=== PATIENT | male | born 1965 | race African-American/Black ===

== ENCOUNTER 2016-08-26 09:10 | Inpatient (IN) | payer MEDICARE, MEDICAID ==
[~2016-08-26] VITALS: Ht 160 cm; Wt 81.6 kg
--- NOTE | 2016-08-26 07:00 | NUR ---
Received report from NICKO Mcnally. Received patient sitting up in bed. Patient is alert and verbally responsive. Able to make needs known. No complaints of pain and discomfort at this time. No acute distress. No s/s of SOB. Patient is on O2 2L nasal canula. Patient is warm to touch. Clean and dry. All needs attended too. Call light within reach. Will continue to monitor. Addendum: 08/26/16 at 2014 by GAURAV FIGUEREDO RN Time charted @ 1900: Received report from NICKO Mcnally. Received patient sitting up in bed. Patient is alert and verbally responsive. Able to make needs known. No complaints of pain and discomfort at this time. No acute distress. No s/s of SOB. Patient is on O2 2L nasal canula. Patient is warm to touch. Clean and dry. All needs attended too. Call light within reach. Will continue to monitor.
[2016-08-26 09:45] VITALS: BP 132/85
[2016-08-26] MEDS ORDERED: PRED20TA PO (10:52)
[2016-08-26] MEDS ORDERED: LEVO500T15 PO (10:52)
[2016-08-26] MEDS ORDERED: METH20CP19 PO (11:06)
[2016-08-26] MEDS ORDERED: HYDR-552 PO (11:06)
[2016-08-26] MEDS ORDERED: DIAZ5SOL2 PO (11:06)
[2016-08-26] MEDS ORDERED: LEVO100T10 PO (11:06)
[2016-08-26] MEDS ORDERED: DIVA500T2 PO (11:08)
[2016-08-26] MEDS ORDERED: DOCU-25 PO (11:08)
[2016-08-26] MEDS ORDERED: SERT50TA PO (11:15)
[2016-08-26] MEDS ORDERED: CLON0.1T PO (11:15)
[2016-08-26] MEDS ORDERED: ARIP15TA2 PO (11:16)
[2016-08-26] MEDS ORDERED: HYDROCODONE/APAP 5-325MG TABLET PO PRN (12:00)
[2016-08-26] MEDS ORDERED: DIAZEPAM 5 MG TABLET PO PRN (12:15)
[2016-08-26] MEDS: LEVOFLOXACIN 500 MG TABLET PO SCH (17:20)
[2016-08-26] MEDS: DOCUSATE SODIUM 100 MG CAPSULE PO SCH (17:20)
[2016-08-26 17:50] VITALS: BP 125/68
[2016-08-26 20:00] VITALS: BP 118/74
[2016-08-26] MEDS ORDERED: Medication Not On Formulary EA (Aripiprazole (Abilify) 15 MG) PO SCH (21:00)
[2016-08-26] MEDS ORDERED: DIAZEPAM 5 MG PO SCH (21:00)
[2016-08-26] MEDS: CLONIDINE HCL 0.1 MG TABLET PO SCH (21:00)
[2016-08-26] MEDS: ARIPIPRAZOLE 5 MG TABLET PO SCH (21:27)
--- NOTE | 2016-08-26 21:27 | NUR ---
Administered patient PM medications. Tolerated well. Clonidine held due to pulse rate of 58. Palpitation of pulse are present and strong. Patient in no acute distress at this time. On continuos O2 @ 2L via nasal cannula. Verbalizes that he feels okay. Sven RT in room to set up patient BiPAP for night time. All needs attended to promptly. Call light within reach. Will continue to monitor patient.
[2016-08-26] MEDS: DIVALPROEX 500 MG TABLET.DR PO SCH (21:28)
[2016-08-26] MEDS: SERTRALINE HCL 50 MG TABLET PO SCH (21:28)
--- NOTE | 2016-08-26 22:00 | NUR ---
Re-assessed patient. Sleeping comfortably at this time. BiPAP mask and machine connected to patient. Tolerating well. On continuous pulse ox and patient oxygen saturating at 97%. Heart rate is currently at 60. No acute distress noted. All needs attended to promptly. Call light within reach. Will continue to monitor patient.
--- NOTE | 2016-08-26 23:00 | NUR ---
Patient sleeping comfortably. Tolerating BiPAP well. O2 saturation @ 97%. Pulse rate is 58. No acute distress at this time. Breathing normally. All needs attended to promptly. Call light within reach. Will continue to monitor.
--- NOTE | 2016-08-27 03:00 | NUR ---
Patient sleeping comfortably at this time. Tolerating BiPAP well. Pulse rate is at 68 at this time. Breathing normally. All needs attended to promptly. Call light within reach. Will continue to monitor.
--- NOTE | 2016-08-27 06:00 | NUR ---
Patient still asleep in bed with BiPAP machine. Tolerating well. Sleeping comfortably. No acute distress noted. No s/s of discomfort noted. O2 saturation @ 96%. Breathing normally. NO SOB noted. Kept clean and dry. All needs attended to promptly. Call light within reach. Will continue to monitor.
[2016-08-27] MEDS: LEVOTHYROXINE SODIUM 100 MCG TABLET PO SCH (06:58)
--- NOTE | 2016-08-27 07:20 | NUR ---
Patient is awake and verbally responsive. RT removed BiPAP machine from patient. Tolerated well. Breathing normally. Synthroid medication given as ordered. Tolerated well. Patient changed and cleaned. Peripheral IV discontinued. Pressure applied to site. No s/s of bleeding. All needs attended to promptly. Call light within reach. Will continue to monitor.
[2016-08-27 07:43] LABS: BASOPHILS % (AUTO) 0.2 % (0.0-2.0); EOSINOPHILS % (AUTO) 0.1 % (0.0-7.0); HEMOGLOBIN 17.1 g/dL (12.5-16.3); LYMPHOCYTES % (AUTO) 21.5 % (20.5-51.5); MEAN CORPUSCULAR HEMOGLOBIN 31.5 uug (23.8-33.4); MEAN CORPUSCULAR HGB CONC 34 g/dL (32.5-36.3); MEAN CORPUSCULAR VOLUME 92.1 fL (73.0-96.2); MONOCYTES # (AUTO) 0.4 K/uL (2.0-10.0); MONOCYTES % (AUTO) 4.6 % (0.0-11.0); NEUTROPHILS # (AUTO) 6.7 K/uL (1.8-8.9); NEUTROPHILS % (AUTO) 73.6 % (38.5-71.5); PLATELET COUNT (AUTO) 196 K/uL (152-348); RED BLOOD CELL COUNT(AUTO) 5.42 MIL/uL (4.06-5.63); RED CELL DISTRIBUTION WIDTH 13.3 % (12.1-16.2); WHITE BLOOD COUNT (AUTO) 9.1 K/uL (3.6-10.2)
[2016-08-27 07:50] LABS: CALCIUM 9.6 mg/dL (8.5-10.1); CREATININE 1.1 mg/dL (0.6-1.3); POTASSIUM 4.3 mmol/L (3.5-5.1)
[2016-08-27] MEDS ORDERED: METHYLPHENIDATE HCL 20 MG PO SCH (09:00)
[2016-08-27] MEDS: predniSONE 20 MG TABLET PO SCH (09:45)
[2016-08-27] MEDS: DOCUSATE SODIUM 100 MG CAPSULE PO SCH ×2 (09:45→18:30)
[2016-08-27] MEDS: CLONIDINE HCL 0.1 MG TABLET PO SCH ×2 (09:46→21:03)
[2016-08-27 10:14] LABS: BAND % (MANUAL) 4 % (0-10); LYMPHOCYTES % (MANUAL) 23 % (20-40); MONOCYTES % (MANUAL) 8 % (2-10); NEUTROPHILS % (MANUAL) 65 % (42-75); PLATELET ESTIMATE ADEQUATE
[2016-08-27] MEDS: METHYLPHENIDATE HCL 5 MG TABLET PO SCH (10:29)
--- NOTE | 2016-08-27 14:44 | NUR ---
DAILY NURSING NOTE UP OOB WITH PT. NGHIA THERAPY WELL. NO C/O PAIN /DISCOMFORT AT THIS TIME OR THROUGHOUT THE DAY SO FAR. AMBULATING WITH WALKER. INCONT OF BM X2 LARGE. HÉCTOR CARE PROVIDED AND PARTIAL LINEN CHANGE DONE.
[2016-08-27 16:00] VITALS: BP 104/70
[2016-08-27] MEDS: LEVOFLOXACIN 500 MG TABLET PO SCH (18:30)
[2016-08-27] MEDS: ARIPIPRAZOLE 5 MG TABLET PO SCH (20:55)
[2016-08-27] MEDS: SERTRALINE HCL 50 MG TABLET PO SCH (20:57)
[2016-08-27] MEDS: DIVALPROEX 500 MG TABLET.DR PO SCH (20:57)
--- NOTE | 2016-08-27 22:12 | NUR ---
Due to MD order and pt's request, pt placed on BiPAP with the following settings of I-10, E-5, RR-12, PS-5, FIO2-30%. No respiratory distress noted. Protecta gel placed under BiPAP mask. Cont. pulse ox on. Alarms on and audible.
--- NOTE | 2016-08-28 03:54 | NUR ---
Patient in bed. Awake and verbally responsive. Currently on BiPAP at this time. Patient noted with coughing. Verbalizes that lungs hurt because of the cough. No acute distress noted. No SOB. Patient O2 saturation @ 95%. Called Dr. Lockwood and left message. Awaiting call back. All needs attended to promptly. Call light within reach. Will continue to monitor.
--- NOTE | 2016-08-28 04:54 | NUR ---
Patient sleeping comfortably. Tolerating BiPAP. No coughing noted at this time. No acute distress. O2 Saturation at 97%. Still awaiting call back from MD. All needs attended to promptly. Call light within reach. Will continue to monitor.
--- NOTE | 2016-08-28 06:17 | NUR ---
Pt asleep. No respiratory distress noted. No changes to BiPAP settings made. Cont. pulse ox on. Alarms on an audible.
--- NOTE | 2016-08-28 06:30 | NUR ---
Received call back from Dr. Lockwood with new orders for Robitussin and Albuterol sulfate nebulizer PRN. Endorsed to on-coming shift. Patient in no acute distress at this time. All needs attended to promptly. Call light within reach. Will continue to monitor.
[2016-08-28] MEDS: LEVOTHYROXINE SODIUM 100 MCG TABLET PO SCH (07:08)
[2016-08-28] MEDS ORDERED: GUAIFENESIN SUGAR FREE 100 MG/5 ML UDC PO PRN ×3 (07:15→10:45)
[2016-08-28 08:00] VITALS: BP 110/64
[2016-08-28] MEDS: ALBUTEROL SULFATE 2.5 MG/3 ML NEBU NEB PRN (08:34)
[2016-08-28] MEDS: DOCUSATE SODIUM 100 MG CAPSULE PO SCH ×2 (09:10→17:27)
[2016-08-28] MEDS: predniSONE 20 MG TABLET PO SCH (09:17)
[2016-08-28] MEDS: CLONIDINE HCL 0.1 MG TABLET PO SCH ×2 (09:17→21:00)
[2016-08-28] MEDS: METHYLPHENIDATE HCL 5 MG TABLET PO SCH (09:17)
[2016-08-28] MEDS: IPRATROPIUM BROMIDE 0.5 MG/2.5 ML NEBU NEB SCH ×2 (13:18→20:34)
[2016-08-28] MEDS: ALBUTEROL SULFATE 2.5 MG/ 0.5 ML NEBU NEB SCH ×2 (13:18→20:34)
[2016-08-28] MEDS ORDERED: ALBUTEROL SULFATE 2.5 MG/3 ML NEBU NEB SCH (13:30)
[2016-08-28] MEDS: LEVOFLOXACIN 500 MG TABLET PO SCH (17:27)
--- NOTE | 2016-08-28 18:35 | NUR ---
RECIEVED PT AT 0700. A/O X4. DELAYED VERBAL RESPONSES. THROUGHOUT SHIFT NO RESP DISTRESS. DR. WILKS INTO SEE PT DURING AM, INFORMED OF PT COUGH, DECREASED LUNG SOUNDS BILAT AND WHEEZES. ORDERS OBTAINED. PT NOW RECEIVING UDN TX'S PER RT, NGHIA WELL. ROBITUSSIN ADMINISTERED X1 WITH FAIR EFFECT. PT STATES SITTING UP RELIEVES COUGH BEST AND REMAINED IN CHAIR IN AFTERNOON. WELL MOTIVATED TO PARTICIPATE IN REHAB PROCESS. NOW TRANSFERRED BACK TO BED WITH 2P ASSIST. RESTING WITH NO DISTRESS. O2 SAT ON 2LNC 97% WHEN SITTING UP. O2 REMAINED ON ALL SHIFT. HAD LG SOFT BM THIS MORNING, INCONTINENT IN DIAPER. INCONTINENT OF URINE 3 TIMES AND DIAPER CHANGED WITH HÉCTOR CARE EA TIME.
[2016-08-28 20:10] VITALS: BP 116/68
[2016-08-28] MEDS: ARIPIPRAZOLE 5 MG TABLET PO SCH (21:07)
[2016-08-28] MEDS: SERTRALINE HCL 50 MG TABLET PO SCH (21:07)
[2016-08-28] MEDS: DIVALPROEX 500 MG TABLET.DR PO SCH (21:07)
[2016-08-28] MEDS: GUAIFENESIN/CODEINE 5 ML LIQUID UDC PO PRN (22:06)
--- NOTE | 2016-08-28 22:28 | NUR ---
Received patient at 1900 in bed sleeping comfortably, easily arousable, not in acute distress. On O2 at 2LPM via NC. No noted episode of coughing. Call light placed in reach. Noted wheezing and diminished breath sounds bibasally. Breathing treatment given by RT as ordered. 2227 Relayed chest x-ray result to Dr. Erazo with no new order. Patient is awake, alert and verbally responsive. Clear breath sounds on auscultation. He denies any pain or discomfort. Assisted to his needs.
--- NOTE | 2016-08-28 23:05 | NUR ---
Pt received on 2LPM nasal cannula. Called by Pt to be placed on BIPAP @ NOC per MD orders. Placed on BIPAP with ordered settings of BIPAP RR-12, IPAP/EPAP-10/5, FIO2-30%. Protecta-Gel in place. Good skin integrity noted. No skin tears noted. Placed on Continuous pulse-oximeter. Tolerating BIPAP settings well. SpO2-96%. BIPAP alarm parameters checked, on and audible. Bag/valve/mask at bedside. In-line nebulizer Tx given Q6 as ordered with Albuterol/Atrovent. Tx tolerated well, with no adverse reactions noted. Will continue to monitor Pt.
[2016-08-29] MEDS: ALBUTEROL SULFATE 2.5 MG/ 0.5 ML NEBU NEB SCH ×4 (01:30→20:02)
[2016-08-29] MEDS: IPRATROPIUM BROMIDE 0.5 MG/2.5 ML NEBU NEB SCH ×4 (01:31→20:02)
[2016-08-29 03:32] VITALS: BP 109/66
--- NOTE | 2016-08-29 07:01 | NUR ---
Pt requested to be removed from BIPAP at this time. Pt now on 2LNC and has been adm'd resp neb tx. No resp. distress noted at this time.
[2016-08-29] MEDS: LEVOTHYROXINE SODIUM 100 MCG TABLET PO SCH (07:09)
[2016-08-29 08:00] VITALS: BP 114/62
[2016-08-29] MEDS: DOCUSATE SODIUM 100 MG CAPSULE PO SCH ×2 (09:22→17:15)
[2016-08-29] MEDS: METHYLPHENIDATE HCL 5 MG TABLET PO SCH (09:22)
[2016-08-29] MEDS: CLONIDINE HCL 0.1 MG TABLET PO SCH ×2 (09:22→20:49)
[2016-08-29] MEDS: predniSONE 20 MG TABLET PO SCH (09:23)
[2016-08-29] MEDS: LEVOFLOXACIN 500 MG TABLET PO SCH (17:16)
[2016-08-29] MEDS: SERTRALINE HCL 50 MG TABLET PO SCH (20:38)
[2016-08-29] MEDS: DIVALPROEX 500 MG TABLET.DR PO SCH (20:39)
[2016-08-29] MEDS: ARIPIPRAZOLE 5 MG TABLET PO SCH (20:39)
[2016-08-29] MEDS: GUAIFENESIN/CODEINE 5 ML LIQUID UDC PO PRN (20:47)
--- NOTE | 2016-08-29 21:00 | NUR ---
PATIENT RECEIVED ON 3LPM O2 VIA NASAL CANNULA. PLACED PATIENT ON BIPAP WITH 30% fIO2 ON ORDERED SETTINGS 10/5 12RR. NO COMPLICATIONS NOTED. PROTECTA-GEL IN PLACE FOR SKIN INTEGRITY. ALARMS ARE ON AND AUDIBLE. INLINE TREATMENTS ADMINISTERED AND TOLERATED WELL. NO ADVERSE REACTIONS NOTED AT THIS TIME. AMBU BAG AT BEDSIDE. WILL CONTINUE TO MONITOR THROUGHOUT SHIFT.
[2016-08-30] MEDS: IPRATROPIUM BROMIDE 0.5 MG/2.5 ML NEBU NEB SCH ×4 (01:27→20:02)
[2016-08-30] MEDS: ALBUTEROL SULFATE 2.5 MG/ 0.5 ML NEBU NEB SCH ×4 (01:27→20:02)
--- NOTE | 2016-08-30 07:00 | NUR ---
Patient alert and oriented and verbally able to let needs known. Had no episodes of pain or discomfort through out the night, no episodes of SOB or distress. Had Bipap machine all night. Call light within reach all needs attended to
[2016-08-30] MEDS: LEVOTHYROXINE SODIUM 100 MCG TABLET PO SCH (07:08)
[2016-08-30 08:30] VITALS: BP 110/72
[2016-08-30] MEDS: METHYLPHENIDATE HCL 5 MG TABLET PO SCH (09:12)
[2016-08-30] MEDS: predniSONE 20 MG TABLET PO SCH (09:12)
[2016-08-30] MEDS: DOCUSATE SODIUM 100 MG CAPSULE PO SCH ×2 (09:12→17:50)
[2016-08-30] MEDS: CLONIDINE HCL 0.1 MG TABLET PO SCH ×2 (09:13→20:33)
[2016-08-30] MEDS: LEVOFLOXACIN 500 MG TABLET PO SCH (17:50)
--- NOTE | 2016-08-30 18:38 | NUR ---
received pt at 0700. a/o x4 w/ delayed but appropriate verbal responses, passive. resp even and unlabored with o2 sat wnl throughout shift. denies sob. receiving udn tx's per RT. has spent most of day up in chair and participated in therapies, well motivated to participate in rehab process. O2 2lnc on at all times including during therapy. O2 sat drops to 90% when O2 off. no distress or complaints throughout shift.
--- NOTE | 2016-08-30 19:00 | NUR ---
Received report from NICKO Blevins. Received patient sitting up in the chair. Patient is alert and verbally responsive. Able to make needs known. No c/o pain and discomfort at this time. No acute distress. No SOB. Patient on O2 2L via NC. Tolerating well. Kept clean and dry. All needs attended to promptly. Call light within reach. Will continue to monitor.
[2016-08-30] MEDS: ARIPIPRAZOLE 5 MG TABLET PO SCH (20:33)
--- NOTE | 2016-08-30 20:33 | NUR ---
PM medications given. Tolerated well. Transferred back to bed with 2 person assist. Tolerated well. No acute distress. No c/o pain and discomfort. Kept clean and dry. All needs attended to promptly. Call light within reach. Will continue to monitor.
[2016-08-30] MEDS: DIVALPROEX 500 MG TABLET.DR PO SCH (20:34)
[2016-08-30] MEDS: SERTRALINE HCL 50 MG TABLET PO SCH (20:41)
--- NOTE | 2016-08-30 21:20 | NUR ---
Pt placed on BIPAP at this time for sleep per pt request. Settings are IPAP 10, EPAP 5, resp. rate. 12, FIO2-30%. No resp. distress noted at this time. Pt to be monitored throughout the shift.
[2016-08-31] MEDS: ALBUTEROL SULFATE 2.5 MG/ 0.5 ML NEBU NEB SCH ×4 (00:38→18:58)
[2016-08-31] MEDS: IPRATROPIUM BROMIDE 0.5 MG/2.5 ML NEBU NEB SCH ×4 (00:38→18:58)
--- NOTE | 2016-08-31 02:02 | NUR ---
Patient sleeping comfortably in bed. Tolerating BiPAP well. No acute distress. NO SOB noted. Skin is warm and dry to touch. All needs attended to promptly. Call light within reach. Will continue to monitor.
--- NOTE | 2016-08-31 06:00 | NUR ---
Patient slept comfortably through out the night. Remains on BiPAP. Tolerating well. No acute distress. All needs attended to promptly. Call light within reach. Will continue to monitor.
--- NOTE | 2016-08-31 06:04 | NUR ---
Patient remains on BIPAP at this time asleep. No resp. distress noted throughout the shift. Pt to be removed off BIPAP later this morning by day shift, Vision alarm parameters have been checked and remain audible. BVM is at bedside.
[2016-08-31] MEDS: LEVOTHYROXINE SODIUM 100 MCG TABLET PO SCH (07:15)
--- NOTE | 2016-08-31 08:00 | NUR ---
Pt alert and oriented x 3 with flat affect. o2 sat 95% on 2 liters n/c. Noted dry scab on lower extremities. Pt is in no acute distress. Discussed plan of care with patient re fall precaution and proper pain management. Pt agreeable with plan of care. Lung sound clear.
[2016-08-31 08:02] VITALS: BP 97/60
[2016-08-31] MEDS: METHYLPHENIDATE HCL 5 MG TABLET PO SCH (08:55)
[2016-08-31] MEDS: CLONIDINE HCL 0.1 MG TABLET PO SCH ×2 (08:56→21:00)
[2016-08-31] MEDS: DOCUSATE SODIUM 100 MG CAPSULE PO SCH ×2 (08:56→17:20)
[2016-08-31] MEDS: predniSONE 20 MG TABLET PO SCH (08:56)
[2016-08-31 14:15] VITALS: BP 101/63
[2016-08-31] MEDS: MAGNESIUM HYDROXIDE 30 ML LIQUID UDC PO PRN (17:34)
--- NOTE | 2016-08-31 18:00 | NUR ---
Pt is in no acute distress. Pt got started on MOM for constipation awaiting result. Call light is within reach. Plan of care effective.
--- NOTE | 2016-08-31 20:55 | NUR ---
Patient placed on BIPAP Vision at this time for sleep per patient's request. Settings are IPAP 10, EPAP 5, respiratory rate 12 BPM and FIO2-30%. No respiratory distress noted at this time. Patient to be monitored throughout the shift. Vision alarm parameters have been checked and are audible. Resuscitation bag is at bedside.
[2016-08-31] MEDS: ARIPIPRAZOLE 5 MG TABLET PO SCH (21:05)
[2016-08-31] MEDS: SERTRALINE HCL 50 MG TABLET PO SCH (21:07)
[2016-08-31] MEDS: DIVALPROEX 500 MG TABLET.DR PO SCH (21:07)
[2016-08-31 22:37] VITALS: BP 102/64
--- NOTE | 2016-09-01 | NUR ---
Pt sleeping, has bipap mask on. denied pain, refused help with repositioning stating he can do it his self. denied needing help to the bathroom, no respiratory distress noted, call light within reach, will continue to monitor.
[2016-09-01] MEDS: IPRATROPIUM BROMIDE 0.5 MG/2.5 ML NEBU NEB SCH ×4 (00:51→19:01)
[2016-09-01] MEDS: ALBUTEROL SULFATE 2.5 MG/ 0.5 ML NEBU NEB SCH ×4 (00:52→19:01)
--- NOTE | 2016-09-01 04:28 | NUR ---
pt agreed to be turned and reposition, pt turned to side and back. pt agreed to changing brief. pt cont with having bipap on, no distress noted. call light within reach.
--- NOTE | 2016-09-01 05:03 | NUR ---
Patient remains on BIPAP at this time and is currently asleep. No respiratory distress noted throughout the shift. Patient to be removed off BIPAP later this morning by day shift. BIPAP Vision alarm parameters have been checked and remain audible. Resuscitation bag is at bedside.
[2016-09-01] MEDS: LEVOTHYROXINE SODIUM 100 MCG TABLET PO SCH (06:03)
--- NOTE | 2016-09-01 07:31 | NUR ---
Sleeping with bipap on, on moderate high back rest
[2016-09-01 08:00] VITALS: BP 121/73
[2016-09-01] MEDS: CLONIDINE HCL 0.1 MG TABLET PO SCH ×2 (09:16→20:51)
[2016-09-01] MEDS: DOCUSATE SODIUM 100 MG CAPSULE PO SCH ×2 (09:16→17:26)
[2016-09-01] MEDS: METHYLPHENIDATE HCL 5 MG TABLET PO SCH (09:17)
[2016-09-01] MEDS: GUAIFENESIN/CODEINE 5 ML LIQUID UDC PO PRN (09:21)
[2016-09-01] MEDS: MAGNESIUM HYDROXIDE 30 ML LIQUID UDC PO PRN (09:21)
--- NOTE | 2016-09-01 14:00 | NUR ---
Assisted to the bathroom, with BM to formed stool in moderate amount after MOM.
[2016-09-01 16:39] VITALS: BP 100/61
--- NOTE | 2016-09-01 18:53 | NUR ---
Still prefers to sit on the wheelchair at this time. Endorsed for further care
--- NOTE | 2016-09-01 19:30 | NUR ---
RECEIVED PATIENT UP IN CHAIR WITHOUT C/O SOB OR WEAKNESS ON ROOM AIR.FEELING STRONGER TODAY. DOING BETTER WITH PT/OT ALSO FEELING BETTER.NO C/O PAIN AT PRESENT. WILL BE GOING ON BIPAP SOON FOR THE NIGHT. COMFORTABLE AT PRESENT. SAFETY MAINTAINED WITH CALL LIGHT WITHIN REACH AAT AND ROUNDING DONE Q 1 HR AND PRN
[2016-09-01 20:15] VITALS: BP 102/54
[2016-09-01] MEDS: SERTRALINE HCL 50 MG TABLET PO SCH (20:50)
[2016-09-01] MEDS: DIVALPROEX 500 MG TABLET.DR PO SCH (20:51)
[2016-09-01] MEDS: ARIPIPRAZOLE 5 MG TABLET PO SCH (20:51)
--- NOTE | 2016-09-01 22:00 | NUR ---
PLACED PT ON BIPAP IPAP 10 EPAP 5 FIO2 30% . AWAKE AND ALERT. NO DISTRESS NOTED AT THIS TIME. WILL CONTINUE TO MONITOR.
--- NOTE | 2016-09-01 22:00 | NUR ---
PATIENT BACK IN BED WITH PM CARE DONE. INCONTINENCE CARE DONE TO KEEP CLEAN AND DRY. PLACED ON BIPAP BY RT. NO C/O RESPIRATORY DISTRESS, COUGHING NONPRODUCTIVELY. DIMINISHED BREATH SOUNDS THROUGHOUT.
[2016-09-02] MEDS: ALBUTEROL SULFATE 2.5 MG/ 0.5 ML NEBU NEB SCH ×4 (01:11→20:13)
[2016-09-02] MEDS: IPRATROPIUM BROMIDE 0.5 MG/2.5 ML NEBU NEB SCH ×4 (01:11→20:13)
[2016-09-02] MEDS: LEVOTHYROXINE SODIUM 100 MCG TABLET PO SCH (06:33)
--- NOTE | 2016-09-02 07:30 | NUR ---
Discussed plan of care and implement interventions re: aspiration precautions, fall precaution, Bowel and bladder management, pain management and encouraged independence as much as possible. Pt agreeable with plan of care. Call light is within reach. Pt denies any c/o pain.
[2016-09-02 07:32] LABS: BASOPHILS # (AUTO) 0.1 K/uL (0.0-8.0); BASOPHILS % (AUTO) 0.8 % (0.0-2.0); EOSINOPHILS # (AUTO) 0.1 K/uL (0.0-0.7); EOSINOPHILS % (AUTO) 1.2 % (0.0-7.0); HEMATOCRIT 48.3 % (36.7-47.1); HEMOGLOBIN 16.3 g/dL (12.5-16.3); LYMPHOCYTES # (AUTO) 2.3 K/uL (20.0-40.0); LYMPHOCYTES % (AUTO) 29.3 % (20.5-51.5); MEAN CORPUSCULAR HGB CONC 34 g/dL (32.5-36.3); MONOCYTES # (AUTO) 0.3 K/uL (2.0-10.0); NEUTROPHILS % (AUTO) 64.7 % (38.5-71.5); RED BLOOD CELL COUNT(AUTO) 5.25 MIL/uL (4.06-5.63); RED CELL DISTRIBUTION WIDTH 13.2 % (12.1-16.2); WHITE BLOOD COUNT (AUTO) 7.8 K/uL (3.6-10.2)
[2016-09-02 07:43] LABS: CALCIUM 8.7 mg/dL (8.5-10.1); CREATININE 1.1 mg/dL (0.6-1.3); PLATELET COUNT (AUTO) 116 K/uL (152-348); POTASSIUM 4.6 mmol/L (3.5-5.1)
[2016-09-02] MEDS: DOCUSATE SODIUM 100 MG CAPSULE PO SCH ×2 (08:00→17:31)
[2016-09-02] MEDS: CLONIDINE HCL 0.1 MG TABLET PO SCH ×2 (08:00→20:37)
[2016-09-02] MEDS: METHYLPHENIDATE HCL 5 MG TABLET PO SCH (08:00)
--- NOTE | 2016-09-02 08:30 | NUR ---
Notified pk of ST recommendations for video swallow eval secondary to pt has coughing when eating. New order received and carried out.
[2016-09-02] MEDS: GUAIFENESIN/CODEINE 5 ML LIQUID UDC PO PRN (09:34)
--- NOTE | 2016-09-02 14:00 | NUR ---
Pt assisted to the bathroom. Pt. preferred to use bathroom rather than urinal. Pt. instructed to use incentive spirometer. Addendum: 09/02/16 at 1932 by SHERIE SALOMON RN Pt able to return demonstrate proper use of incentive spirometer and encourage to use IS q 1 hr WA
--- NOTE | 2016-09-02 18:30 | NUR ---
Plan of care effective. no fall noted this shift, pt denies any c/o pain, and pt has been using IS as instructed. Call light is within reach.
--- NOTE | 2016-09-02 19:30 | NUR ---
RECEIVED PATIENT OOB IN CHAIR IN NAD ON ROOM AIR. NO C/O SOB OR PAIN AT PRESENT.WILL BE USING BIPAP AGAIN TONIGHT ABOUT 2200. DIMINISHED BREATH SOUNDS THROUGHOUT. ABLE TO TAKE PILLS WHOLE WITHOUT COUGHING OR SIGNS OF CHOKING OR ASPIRATION. ASSISTED BACK TO BED WITH CONTACT GUARD ASSIST. DIAPER CHANGED. KEPT CLEAN AND DRY. HÉCTOR AREA IS REDDENED. Z GUARD CREAM ORDERED FROM PHARMACY. WILL BE CHECKING DIAPER Q 1 TO 2 HRS TO MAKE SURE PATIENT IS CLEAN AND DRY.CALL LIGHT IN REACH AND BED ALARM ON AAT
[2016-09-02 20:00] VITALS: BP 100/65
[2016-09-02] MEDS: DIVALPROEX 500 MG TABLET.DR PO SCH (20:35)
[2016-09-02] MEDS: SERTRALINE HCL 50 MG TABLET PO SCH (20:36)
[2016-09-02] MEDS: ARIPIPRAZOLE 5 MG TABLET PO SCH (20:36)
--- NOTE | 2016-09-02 22:00 | NUR ---
PLACED ON BIPAP FOR THE NIGHT. ADEQUATE VOLUMES OBTAINED. RESTING SOUNDLY WITHOUT RESPIRATORY DISTRESS NOTED
[2016-09-03] MEDS: IPRATROPIUM BROMIDE 0.5 MG/2.5 ML NEBU NEB SCH ×4 (01:45→19:09)
[2016-09-03] MEDS: ALBUTEROL SULFATE 2.5 MG/ 0.5 ML NEBU NEB SCH ×4 (01:45→19:09)
[2016-09-03] MEDS: LEVOTHYROXINE SODIUM 100 MCG TABLET PO SCH (06:28)
--- NOTE | 2016-09-03 06:30 | NUR ---
TOLERATED BEING ON BIPAP 305 FIO2 OVER NIGHT FROM 2200 TO 0600 WITHOUT SIGNS OF ASPIRATION OR RESPIRATORY DISTRESS.WILL BE HAVING VIDEO SWALLOW TODAY TO ASSESS FOR ASPIRATION EPISODES ABOUT 1600. SLEPT WELL. NO C/O PAIN. ENCOURAGED DEEP BREATHING. WITH IS CALL LIGHT WITHIN REACH. BED ALARM ON FREE FROM INJURY THIS SHIFT
[2016-09-03 06:33] LABS: BASOPHILS % (AUTO) 0.2 % (0.0-2.0); EOSINOPHILS # (AUTO) 0.1 K/uL (0.0-0.7); EOSINOPHILS % (AUTO) 0.8 % (0.0-7.0); HEMATOCRIT 47.6 % (36.7-47.1); HEMOGLOBIN 16.4 g/dL (12.5-16.3); LYMPHOCYTES # (AUTO) 1.9 K/uL (20.0-40.0); LYMPHOCYTES % (AUTO) 21.1 % (20.5-51.5); MEAN CORPUSCULAR HEMOGLOBIN 31.5 uug (23.8-33.4); MEAN CORPUSCULAR HGB CONC 34 g/dL (32.5-36.3); MEAN CORPUSCULAR VOLUME 91.6 fL (73.0-96.2); MONOCYTES # (AUTO) 0.4 K/uL (2.0-10.0); MONOCYTES % (AUTO) 4.9 % (0.0-11.0); NEUTROPHILS # (AUTO) 6.7 K/uL (1.8-8.9); PLATELET COUNT (AUTO) 131 K/uL (152-348); RED CELL DISTRIBUTION WIDTH 13.1 % (12.1-16.2); WHITE BLOOD COUNT (AUTO) 9.1 K/uL (3.6-10.2)
--- NOTE | 2016-09-03 07:15 | NUR ---
Patient received from cage shift manager, sleeping comfortably in bed, no signs of acute distress noted. Respirations even and unlabored. Environmental check for safety done, safety precautions maintained. Bed in low position, bed alarm on, call light within reach.
[2016-09-03 07:28] LABS: THYROID STIMULATING HORMONE 2.315 mIU/mL (0.358-3.740)
[2016-09-03 08:15] VITALS: BP 108/67
[2016-09-03] MEDS: CLONIDINE HCL 0.1 MG TABLET PO SCH ×2 (08:34→21:00)
[2016-09-03] MEDS: METHYLPHENIDATE HCL 5 MG TABLET PO SCH (08:34)
[2016-09-03] MEDS: DOCUSATE SODIUM 100 MG CAPSULE PO SCH ×2 (08:34→17:08)
[2016-09-03 08:45] LABS: ALBUMIN 3.2 g/dL (3.4-5.0); BILIRUBIN,TOTAL 0.7 mg/dL (0.2-1.0); CALCIUM 8.7 mg/dL (8.5-10.1); MAGNESIUM 2.1 mg/dL (1.8-2.4); PHOSPHOROUS 3.8 mg/dL (2.5-4.9); POTASSIUM 4.2 mmol/L (3.5-5.1); TOTAL PROTEIN, SERUM 6.4 g/dL (6.4-8.2)
[2016-09-03] MEDS ORDERED: DEXTROSE 50% 50 ML DISP.SYRIN IV PRN (10:00)
[2016-09-03] MEDS: BLOOD SUGAR DIAGNOSTIC 1 EACH STRIP VI SCH ×3 (11:38→21:39)
[2016-09-03] MEDS: GUAIFENESIN/CODEINE 5 ML LIQUID UDC PO PRN ×2 (11:38→21:26)
[2016-09-03] MEDS: INSULIN REGULAR, HUMAN 300 UNIT/3 ML VIAL SQ PRN ×3 (11:43→21:37)
[2016-09-03] MEDS ORDERED: BARIUM SULFATE 148 GM SUSP.RECON PO ONE (11:51)
[2016-09-03] MEDS ORDERED: BARIUM SULFATE 240 ML ORAL.SUSP PO ONE (11:51)
--- NOTE | 2016-09-03 15:00 | NUR ---
IDT MEETING 09/03/16
[2016-09-03 15:57] VITALS: BP 121/67
--- NOTE | 2016-09-03 19:30 | NUR ---
Received report from NICKO Morales. Patient received sitting up in his chair. Alert and verbally responsive. Able to make needs known. No c/o pain and discomfort at this time. No acute distress. Patient on room air. Kept clean and dry. All needs attended to promptly. Call light within reach. Will continue to monitor.
[2016-09-03] MEDS ORDERED: IBUPROFEN 400 MG TABLET PO PRN (21:15)
[2016-09-03] MEDS: SERTRALINE HCL 50 MG TABLET PO SCH (21:25)
[2016-09-03] MEDS: DIVALPROEX 500 MG TABLET.DR PO SCH (21:25)
[2016-09-03] MEDS: ARIPIPRAZOLE 5 MG TABLET PO SCH (21:26)
--- NOTE | 2016-09-03 21:26 | NUR ---
Patient still noted with Non-productive cough. V/S are stable O2 sat at 95%. Lung sounds are clear. No c/o pain. Robitussin AC given as needed. Patient tolerated well. Patient also transferred from chair to bed with 1 person assist. Patient tolerated transfer well. PM care given. All needs attended to promptly. Call light within reach. Will continue to monitor
--- NOTE | 2016-09-03 22:00 | NUR ---
Patient put on BiPAP by RT. Patient tolerating BiPAP well. All needs attended too. Call light within reach. Will continue to monitor.
--- NOTE | 2016-09-03 22:00 | NUR ---
Patient remains on BIPAP at this time asleep. No resp. distress noted throughout the shift. Pt to be removed off BIPAP later this morning by day shift, Vision alarm parameters have been checked and remain audible. Resusc. bag is at bedside.
[2016-09-04] MEDS: ALBUTEROL SULFATE 2.5 MG/ 0.5 ML NEBU NEB SCH ×4 (00:53→19:16)
[2016-09-04] MEDS: IPRATROPIUM BROMIDE 0.5 MG/2.5 ML NEBU NEB SCH ×4 (00:53→19:16)
--- NOTE | 2016-09-04 05:30 | NUR ---
Patient still asleep at this time. Tolerating BiPAP well. Breathing normally. No SOB noted. No acute distress. No coughing noted at this time. All needs attended to promptly. Call light within reach. Will continue to monitor patient.
[2016-09-04] MEDS: LEVOTHYROXINE SODIUM 100 MCG TABLET PO SCH (06:24)
[2016-09-04] MEDS: BLOOD SUGAR DIAGNOSTIC 1 EACH STRIP VI SCH ×4 (06:54→21:53)
--- NOTE | 2016-09-04 08:00 | NUR ---
RECEIVED PT THIS AM IN NAD; VS WNL; PT ON ROOM AIR SPO2 95%. PT DENIES CONCERNS AT THIS TIME.
[2016-09-04] MEDS: METHYLPHENIDATE HCL 5 MG TABLET PO SCH (08:01)
[2016-09-04] MEDS: DOCUSATE SODIUM 100 MG CAPSULE PO SCH ×2 (08:01→17:13)
[2016-09-04] MEDS: CLONIDINE HCL 0.1 MG TABLET PO SCH ×2 (08:02→21:00)
[2016-09-04] MEDS: INSULIN REGULAR, HUMAN 300 UNIT/3 ML VIAL SQ PRN ×2 (08:13→21:53)
[2016-09-04 08:34] VITALS: BP 131/84
[2016-09-04] MEDS: GUAIFENESIN/CODEINE 5 ML LIQUID UDC PO PRN ×3 (09:07→21:42)
--- NOTE | 2016-09-04 13:39 | NUR ---
DR FLORES AT BEDSIDE FOR PSYCHIATRIC CONSULT
--- NOTE | 2016-09-04 19:30 | NUR ---
Received report from NICKO Cr. Received patient sitting up in chair. Alert and verbally responsive. Able to make needs known. No c/o pain and discomfort at this time. No acute distress. No SOB noted. All needs attended to promptly. Call light within reach. Will continue to monitor.
[2016-09-04] MEDS ORDERED: SERTRALINE HCL 50 MG TABLET PO SCH (21:00)
[2016-09-04] MEDS: ARIPIPRAZOLE 5 MG TABLET PO SCH (21:39)
[2016-09-04] MEDS: SERTRALINE HCL 100 MG TABLET PO SCH (21:40)
[2016-09-04] MEDS: DIVALPROEX 500 MG TABLET.DR PO SCH (21:40)
--- NOTE | 2016-09-04 23:50 | NUR ---
Patient placed on BiPAP at this time. Tolerating well. No acute distress. All needs attended to promptly. Call light within reach. Will continue to monitor.
[2016-09-05] MEDS: IPRATROPIUM BROMIDE 0.5 MG/2.5 ML NEBU NEB SCH ×4 (00:38→19:59)
[2016-09-05] MEDS: ALBUTEROL SULFATE 2.5 MG/ 0.5 ML NEBU NEB SCH ×4 (00:38→19:59)
--- NOTE | 2016-09-05 00:43 | NUR ---
PLACED PATIENT ON BIPAP AT 2350. PATIENT REMAINS ON BIPAP AT THIS TIME. HHN TREATMENT ADMINISTERED PER MD ORDERS AND TOLERATED WELL WITH NO ADVERSE REACTIONS NOTED. ALARM PARAMETER ARE ON AND AUDIBLE. AMBU BAG IS AT BEDSIDE. PATIENT IS ASLEEP AND NO SOB NOTED AT THIS TIME.
--- NOTE | 2016-09-05 01:00 | NUR ---
Patient remains on BiPAP. Tolerating well. Sleeping comfortably. All needs attended to promptly. Call light within reach. Will continue to monitor.
--- NOTE | 2016-09-05 06:15 | NUR ---
Patient still asleep at this time. Remains on BiPAP. No acute distress. No SOB. All needs attended to promptly. Call light within reach. Will continue to monitor.
[2016-09-05] MEDS: LEVOTHYROXINE SODIUM 100 MCG TABLET PO SCH (06:38)
[2016-09-05] MEDS: BLOOD SUGAR DIAGNOSTIC 1 EACH STRIP VI SCH ×4 (06:40→20:47)
--- NOTE | 2016-09-05 07:15 | NUR ---
Patient received from night nurse, no signs of acute distress noted. Patient resting comfortably in bed, no signs of pain noted. Respirations even and unlabored. VS WNL. Safety precautions maintained, bed in low position.
[2016-09-05 07:52] VITALS: BP 97/57
[2016-09-05] MEDS: CLONIDINE HCL 0.1 MG TABLET PO SCH (09:00)
[2016-09-05] MEDS: DOCUSATE SODIUM 100 MG CAPSULE PO SCH ×2 (09:18→17:46)
[2016-09-05] MEDS: METHYLPHENIDATE HCL 5 MG TABLET PO SCH (09:19)
[2016-09-05] MEDS: GUAIFENESIN/CODEINE 5 ML LIQUID UDC PO PRN ×2 (11:14→22:06)
[2016-09-05] MEDS: predniSONE 10 MG TABLET PO SCH (11:33)
[2016-09-05] MEDS: INSULIN REGULAR, HUMAN 300 UNIT/3 ML VIAL SQ PRN ×3 (12:41→21:05)
[2016-09-05] MEDS: LEVOFLOXACIN 500 MG TABLET PO SCH (13:05)
--- NOTE | 2016-09-05 19:50 | NUR ---
RECEIVED PT'S SITTING @ WHEELCHAIR AND STATED THAT "I DON'T WANT TO GO BACK TO BED YET AND I WILL GO AROUND IN THE HALLWAY",DRY COUGH SOMETIMES;NO SOB ,BILATERAL LUNG'S CLEAR.PT DENIED OF PAIN OR ANY DISCOMFORT.CONTINUED MONITORING TO PT.
[2016-09-05] MEDS: ALBUTEROL SULFATE 2.5 MG/3 ML NEBU NEB PRN (19:59)
[2016-09-05 20:00] VITALS: BP 125/79
[2016-09-05] MEDS: SERTRALINE HCL 100 MG TABLET PO SCH (20:50)
[2016-09-05] MEDS: DIVALPROEX 500 MG TABLET.DR PO SCH (20:50)
[2016-09-05] MEDS: ARIPIPRAZOLE 5 MG TABLET PO SCH (20:51)
--- NOTE | 2016-09-05 21:30 | NUR ---
ASSISTED PT TO GO BACK TO BED;SKIN CARE PER PROTOCOL,PT DENIED OF PAIN OR ANY DISCOMFORT,COOPERATIVE W/ASSISTANCE.CHANGED GOWN AND ALL NEEDS WERE MET AT THIS TIME.KEPT COMFORT.CALL-LIGHT WITHIN REACH.BED ALARM'S ON.
--- NOTE | 2016-09-05 22:31 | NUR ---
PLACED PT ON BIPAP SETTINGS ST 10/5 RATE 12, FIO2 30%, VENT CHECKED, ALARMS ON AND AUDIBLE, PROTECTA GEL IN PLACED, NO S/S DISTRESS NOTED, PT ON SEMI BAUER'S POSITION. WILL CONTINUE TO MONITOR.
[2016-09-06] MEDS: IPRATROPIUM BROMIDE 0.5 MG/2.5 ML NEBU NEB SCH ×4 (00:55→18:40)
[2016-09-06] MEDS: ALBUTEROL SULFATE 2.5 MG/ 0.5 ML NEBU NEB SCH ×4 (00:55→18:40)
[2016-09-06] MEDS: LEVOTHYROXINE SODIUM 100 MCG TABLET PO SCH (06:30)
[2016-09-06] MEDS: BLOOD SUGAR DIAGNOSTIC 1 EACH STRIP VI SCH ×4 (06:46→21:42)
--- NOTE | 2016-09-06 06:50 | NUR ---
PT SLEPT WELL AT NIGHT.ASSISTED FOR AM CARE ON BED THIS MORNING;PT'S COOPERATIVE W/ASSISTANCE;DENIED OF PAIN OR ANY DISCOMFORT.NO DISTRESS NOTED IN THE SHIFT.
[2016-09-06 08:00] VITALS: BP 117/63
--- NOTE | 2016-09-06 08:00 | NUR ---
Awake, alert, oriented x 4. Repositioned in bed comfortably.
[2016-09-06] MEDS: DOCUSATE SODIUM 100 MG CAPSULE PO SCH ×2 (08:39→17:34)
[2016-09-06] MEDS: METHYLPHENIDATE HCL 5 MG TABLET PO SCH (08:40)
[2016-09-06] MEDS: predniSONE 10 MG TABLET PO SCH (08:40)
[2016-09-06] MEDS: INSULIN REGULAR, HUMAN 300 UNIT/3 ML VIAL SQ PRN ×3 (08:42→21:37)
[2016-09-06] MEDS: GUAIFENESIN/CODEINE 5 ML LIQUID UDC PO PRN ×3 (09:42→21:22)
[2016-09-06] MEDS: MAGNESIUM HYDROXIDE 30 ML LIQUID UDC PO PRN (09:42)
[2016-09-06] MEDS ORDERED: DOCUSATE SODIUM 100 MG CAPSULE PO SCH (11:45)
[2016-09-06] MEDS ORDERED: BISACODYL 10 MG SUPP.RECT RC PRN (11:45)
[2016-09-06] MEDS ORDERED: FLEET ENEMA 133 ML BOTTLE RC ONE (11:45)
[2016-09-06] MEDS: LEVOFLOXACIN 500 MG TABLET PO SCH (12:32)
--- NOTE | 2016-09-06 13:49 | NUR ---
No BM x 5 days. MOM po given, still no BM. Fleet's enema given as ordered.
--- NOTE | 2016-09-06 18:18 | NUR ---
With moderate amount of soft stool after fleets enema. Incontinence care given. Repositioned comfortably, kept dry.
--- NOTE | 2016-09-06 19:30 | NUR ---
RECEIVED PATIENT RESTING QUIETLY IN BED IN NAD. NO OVERT SIGNS OF RESPIRATORY DISTRESS ON ROOM AIR. WILL BE GOING ON BIPAP TONIGHT ABOUT 2200.SATS ON ROOM AIR ARE FROM 93-96%. LUNGS ARE DIMINISHED THROUGHOUT. NONPRODUCTIVE FREQUENT COUGH. REQUESTING ROBITUSSIN PRIOR TO SLEEP.INSTRUCTED TO CALL RN FOR ANY NEEDS KNOWN. PATIENT VERBALLY AGREES. CALL LIGHT WITHIN REACH AND BED ALARM ON AAT.NO C/O PAIN AT THIS TIME.
[2016-09-06 20:00] VITALS: BP 107/66
[2016-09-06] MEDS: DIVALPROEX 500 MG TABLET.DR PO SCH (21:16)
[2016-09-06] MEDS: SERTRALINE HCL 100 MG TABLET PO SCH (21:17)
[2016-09-06] MEDS: HYDROCORTISONE 2.5% CREAM 20 GM TUBE TOP PRN (21:17)
[2016-09-06] MEDS: ARIPIPRAZOLE 5 MG TABLET PO SCH (21:17)
[2016-09-06] MEDS: Z GUARD REMEDY PASTE 57 GM TUBE TOP PRN (21:18)
--- NOTE | 2016-09-06 21:30 | NUR ---
ACCUCHECKS DONE AC/HS. BLOOD SUGAR WAS 117. NO INSULIN COVERAGE NEEDED. REFUSES PM SNACK.INCONTINENT OF URINE IN DIAPER. PM CARE DONE WITH Z GUARD APPLIED TO HÉCTOR AREA.
--- NOTE | 2016-09-06 21:50 | NUR ---
Pt placed on BIPAP per md order with settings of IPAP 10 EPAP 5, respiratory rate of 12, FiO2 30%. Protecta gel placed to protect skin from mask. No signs of respiratory distress noted. Pt is awake and alert, states that the mask is comfortable at this time. Pt is tolerating BIPAP and mask well. SpO2 96%. RN notified and aware that pt is on BIPAP now. Alarms are functioning and audible. Will continue to monitor pt throughout shift.
--- NOTE | 2016-09-06 21:50 | NUR ---
PLACED ON BIPAP WITH SETTINGS OF 30% FIO2, 10/5, WITH RR OF 12/MIN. PLACED ON CONTINUOUS PULSE OX.FOR THE NIGHT. SATS ARE RUNNING 95-97% ON BIPAP. PATIENT STATES MASK IS COMFORTABLE AT THIS TIME. OBSERVED CLOSELY FOR SIGNS OF POTENTIAL ASPIRATION THROUGHOUT THE NIGHT.NO SIGNS OF RESPIRATORY DISTRESS AT THIS TIME.CALL LIGHT WITHIN REACH AAT. PATIENT IS IN SEMI FOWLERS POSITION FOR SLEEP. NO C/O AT THIS TIME
[2016-09-07] MEDS: IPRATROPIUM BROMIDE 0.5 MG/2.5 ML NEBU NEB SCH ×4 (01:40→19:23)
[2016-09-07] MEDS: ALBUTEROL SULFATE 2.5 MG/ 0.5 ML NEBU NEB SCH ×4 (01:40→19:23)
--- NOTE | 2016-09-07 06:00 | NUR ---
PT SLEPT WELL TONIGHT WITH BIPAP ON UNTIL 0600 THIS MORNING. SATS MAINTAINED IN THE MID 90'S. NO PERIODS OF APNEA NOTED. CONTINUES TO BE INCONTINENT OF URINE IN DIAPERS. SCROTUM AND PENIS ARE REDDENED. Z GUARD APPLIED FREQUENTLY.LEFT PATIENT WITH CALL LIGHT IN REACH AND BED ALARM ON. MORNING ACCUCHECK WAS 117
[2016-09-07] MEDS: LEVOTHYROXINE SODIUM 100 MCG TABLET PO SCH (06:05)
[2016-09-07] MEDS: BLOOD SUGAR DIAGNOSTIC 1 EACH STRIP VI SCH ×4 (06:34→20:37)
[2016-09-07] MEDS: Z GUARD REMEDY PASTE 57 GM TUBE TOP PRN (06:35)
[2016-09-07 07:12] LABS: BASOPHILS % (AUTO) 0.4 % (0.0-2.0); EOSINOPHILS # (AUTO) 0.1 K/uL (0.0-0.7); EOSINOPHILS % (AUTO) 0.8 % (0.0-7.0); LYMPHOCYTES # (AUTO) 1.7 K/uL (20.0-40.0); LYMPHOCYTES % (AUTO) 26.8 % (20.5-51.5); MEAN CORPUSCULAR HEMOGLOBIN 31.9 UUG (27.0-31.0); MEAN CORPUSCULAR HGB CONC 35 g/dL (32.0-37.0); MEAN CORPUSCULAR VOLUME 91.3 FL (82.0-92.0); MONOCYTES # (AUTO) 0.4 K/uL (2.0-10.0); MONOCYTES % (AUTO) 6.5 % (0.0-11.0); NEUTROPHILS # (AUTO) 4.1 K/uL (1.8-8.9); NEUTROPHILS % (AUTO) 65.5 % (38.5-71.5); PLATELET COUNT (AUTO) 160 K/UL (150-450); RED BLOOD CELL COUNT(AUTO) 4.71 MIL/UL (4.7-6.1); RED CELL DISTRIBUTION WIDTH 13.2 % (11.5-14.5)
[2016-09-07 07:22] LABS: WHITE BLOOD COUNT (AUTO) 6.4 K/UL (4.0-11.2)
[2016-09-07 07:54] LABS: ALBUMIN 3.2 g/dL (3.4-5.0); BILIRUBIN,TOTAL 0.4 mg/dL (0.2-1.0); CALCIUM 8.2 mg/dL (8.5-10.1); MAGNESIUM 2.2 mg/dL (1.8-2.4); PHOSPHOROUS 3.5 mg/dL (2.5-4.9); POTASSIUM 4.2 mmol/L (3.5-5.1); TOTAL PROTEIN, SERUM 6.6 g/dL (6.4-8.2)
--- NOTE | 2016-09-07 08:24 | NUR ---
Blood Sugar checked before breakfast. Result showed 86mg/dl. no insulin coverage given.
[2016-09-07] MEDS: DOCUSATE SODIUM 100 MG CAPSULE PO SCH ×2 (09:21→16:45)
[2016-09-07] MEDS: predniSONE 10 MG TABLET PO SCH (09:21)
[2016-09-07] MEDS: METHYLPHENIDATE HCL 5 MG TABLET PO SCH (09:22)
[2016-09-07] MEDS: LEVOFLOXACIN 500 MG TABLET PO SCH (11:26)
--- NOTE | 2016-09-07 11:28 | NUR ---
Blood sugar checked before lunch blood sugar is 109 mg/dl. no coverage given as per protocol.
[2016-09-07] MEDS: INSULIN REGULAR, HUMAN 300 UNIT/3 ML VIAL SQ PRN ×3 (14:22→20:49)
[2016-09-07] MEDS: MAGNESIUM HYDROXIDE 30 ML LIQUID UDC PO PRN (14:26)
[2016-09-07 19:30] VITALS: BP 127/75
--- NOTE | 2016-09-07 19:30 | NUR ---
RECEIVED PATIENT UP IN W/C AT CHANGE OF SHIFT IN NAD. BREATHING, REGULAR, EVEN, HOWEVER SHALLOW WITH SATS IN THE MD 90'S. ENCOURAGED SLOW DEEP BREATHING. REQUESTING TO GO ON BIPAP TONIGHT ABOUT 2100. RT NOTIFIED. INCONTINENT OF URNE BUT STILL HAD TO VOID SO IN W/C WENT TO TOILET AND WAS ABLE TO PIVOT WITH CONTACT GUARD ASSIST OF ONE, HOWEVER A BIT UNSTEADY WITH MILD WEAKNESS IN HIS LEGS. INSTRUCTED TO CALL RN FOR ANY NEEDS OR C/O. PATIENT VERBALLY UNDERSTANDS.CALL LIGHT WITHIN REACH AAT AND BED ALARM ON WHEN BACK IN BED.
[2016-09-07] MEDS: DIVALPROEX 500 MG TABLET.DR PO SCH (20:29)
[2016-09-07] MEDS: SERTRALINE HCL 100 MG TABLET PO SCH (20:29)
[2016-09-07] MEDS: HYDROCORTISONE 2.5% CREAM 20 GM TUBE TOP PRN (20:31)
[2016-09-07] MEDS: ARIPIPRAZOLE 5 MG TABLET PO SCH (20:31)
[2016-09-08] MEDS: ALBUTEROL SULFATE 2.5 MG/ 0.5 ML NEBU NEB SCH ×3 (01:11→14:25)
[2016-09-08] MEDS: IPRATROPIUM BROMIDE 0.5 MG/2.5 ML NEBU NEB SCH ×3 (01:11→14:25)
--- NOTE | 2016-09-08 02:23 | NUR ---
Patient was placed on BIPAP with settings of IPAP 10 EPAP 5, respiratory rate of 12, FiO2 30% per MD order. Protecta gel placed to protect skin from abrasions. No signs pr symptoms of respiratory distress. Pt is tolerating BIPAP and mask well. SpO2 98%. Alarms are functioning and audible. Will continue to monitor pt throughout shift.
--- NOTE | 2016-09-08 06:00 | NUR ---
SLEPT WELL TONIGHT.WAS ON BIPAP FROM 2122 TO 599 AND TOLERATED WELL WITHOUT ANY PERIODS OF APNEA.SATS MAINTAINED IN THE MID 90'S TO HIGH 90'S OVER NIGHT. CONTINUES TO BE INCONTINENT OF URINE. KEPT CLEAN AND DRY. DIAPER CHANGED FREQUENTLY. SKIN INTACT WITH Z GUARD USED WITH EACH INCONTINENCE. LEFT WITH CALL LIGHT IN REACH AND BED ALARM ON
[2016-09-08] MEDS: LEVOTHYROXINE SODIUM 100 MCG TABLET PO SCH (06:23)
[2016-09-08] MEDS: BLOOD SUGAR DIAGNOSTIC 1 EACH STRIP VI SCH ×3 (06:58→16:30)
[2016-09-08 08:11] VITALS: BP 121/75
[2016-09-08] MEDS: DOCUSATE SODIUM 100 MG CAPSULE PO SCH ×2 (09:08→17:00)
[2016-09-08] MEDS: predniSONE 10 MG TABLET PO SCH (09:09)
[2016-09-08] MEDS: METHYLPHENIDATE HCL 5 MG TABLET PO SCH (09:09)
[2016-09-08] MEDS: GUAIFENESIN/CODEINE 5 ML LIQUID UDC PO PRN (09:28)
[2016-09-08] MEDS: INSULIN REGULAR, HUMAN 300 UNIT/3 ML VIAL SQ PRN (12:57)
[2016-09-08] MEDS: LEVOFLOXACIN 500 MG TABLET PO SCH (12:57)
--- NOTE | 2016-09-08 17:35 | NUR ---
1700 PT. AND CAREGIVER GIVEN DISCHARGE INSTRUCTIONS AND VERBALIZED UNDERSTANDING. PT. AND CAREGIVER PROVIDED DEMONSTRATION AND RETURN DEMONSTRATION OF GLUCOMETER CHECK. RX FAXED TO PT. PHARMACY AND VERIFIED RECEIPT AND PROVISION OF INSTRUCTIONS ON NEW RX AND GLUCOMETER/NEBULIZER. PT. LEFT UNIT WILL ALL BELONGINGS ACCOMPAINED BY CAREGIVER TO PRIVATE CAR.
== END 2016-09-08 17:00 | disposition home health service (06) | DRG 190 ==
PROVIDERS: ADMIT Physical Medicine & Rehabilitation Pain Medicine; ATTEND Physical Medicine & Rehabilitation Pain Medicine
PROC: 5A09357 Assistance with Respiratory Ventilation, Less than 24 Consecutive Hours, Continuous Positive Airway Pressure (ICD-10-PCS; principal; 2016-08-26)
DX: J44.1 Chronic obstructive pulmonary disease with (acute) exacerbation (principal); J18.9 Pneumonia, unspecified organism; J96.11 Chronic respiratory failure with hypoxia; J44.0 Chronic obstructive pulmonary disease with (acute) lower respiratory infection; G80.9 Cerebral palsy, unspecified; R53.1 Weakness; G47.33 Obstructive sleep apnea (adult) (pediatric); I51.7 Cardiomegaly; I10 Essential (primary) hypertension; I25.10 Atherosclerotic heart disease of native coronary artery without angina pectoris; D69.6 Thrombocytopenia, unspecified; E11.65 Type 2 diabetes mellitus with hyperglycemia; J40 Bronchitis, not specified as acute or chronic; E03.9 Hypothyroidism, unspecified; Z96.649 Presence of unspecified artificial hip joint; D75.1 Secondary polycythemia; E78.1 Pure hyperglyceridemia; K59.00 Constipation, unspecified; M41.9 Scoliosis, unspecified; Z96.643 Presence of artificial hip joint, bilateral; F31.9 Bipolar disorder, unspecified; Z87.891 Personal history of nicotine dependence
CPT/HCPCS: 36415; 70030-TC; 71010; 74000; 74230; 83735; 84100; 84443; 85025; 92506; 92611; 93005; 94640; 94660; 94664; 94762; 97001; 97110; 97112; 97116; 97530; 97535; A4663; J1815; J3590; J7512

== ENCOUNTER 2017-06-11 00:10 | Emergency (ER) | payer MEDICARE, MEDICAID ==
[~2017-06-11] VITALS: Ht 160 cm; Wt 113.4 kg
[~2017-06-11 00:10] MED LIST: ARIP15TA3 PO; CLON0.1T PO; DIAZ5SOL2 PO; DIVA500T2 PO; DOCU-141 PO; HYDR-552 PO; LEVO100T10 PO; LEVO500T2 PO; METH20CP19 PO; PRED20TA PO; SERT50TA PO
[2017-06-11] MEDS ORDERED: CYAN10009 PO (01:08)
[2017-06-11] MEDS ORDERED: BENZTROPINE PO (01:08)
[2017-06-11] MEDS ORDERED: DIAZ5TAB4 PO (01:08)
[2017-06-11] MEDS ORDERED: CHOL500062 PO (01:08)
[2017-06-11] MEDS ORDERED: RISP1SOL PO (01:08)
[2017-06-11] MEDS ORDERED: ARIP10TA17 PO (01:08)
[2017-06-11] MEDS ORDERED: FISH1CAP16 PO (01:08)
[2017-06-11] MEDS ORDERED: HYDR-3326 PO (01:08)
--- NOTE | 2017-06-11 02:00 | NUR ---
Seen and evaluated by Dr. Velarde.
[2017-06-11 02:24] LABS: BASOPHILS # (AUTO) 0.1 K/uL (0.0-8.0); BASOPHILS % (AUTO) 0.7 % (0.0-2.0); EOSINOPHILS # (AUTO) 0.1 K/uL (0.0-0.7); EOSINOPHILS % (AUTO) 1.6 % (0.0-7.0); HEMOGLOBIN 16.6 g/dL (12.5-16.3); LYMPHOCYTES # (AUTO) 1.7 K/uL (20.0-40.0); LYMPHOCYTES % (AUTO) 21.7 % (20.5-51.5); MEAN CORPUSCULAR HEMOGLOBIN 30.7 uug (23.8-33.4); MEAN CORPUSCULAR HGB CONC 34 g/dL (32.5-36.3); MEAN CORPUSCULAR VOLUME 90.6 fL (73.0-96.2); MONOCYTES # (AUTO) 0.7 K/uL (2.0-10.0); MONOCYTES % (AUTO) 9.5 % (0.0-11.0); NEUTROPHILS # (AUTO) 5.2 K/uL (1.8-8.9); NEUTROPHILS % (AUTO) 66.5 % (38.5-71.5); PLATELET COUNT (AUTO) 150 K/uL (152-348); RED BLOOD CELL COUNT(AUTO) 5.41 MIL/uL (4.06-5.63); WHITE BLOOD COUNT (AUTO) 7.8 K/uL (3.6-10.2)
[2017-06-11 02:33] LABS: CREATININE 1.1 mg/dL (0.6-1.3); POTASSIUM 3.9 mmol/L (3.5-5.1)
[2017-06-11 02:45] LABS: BILIRUBIN,DIRECT 0.1 mg/dL (0.0-0.2); BILIRUBIN,TOTAL 0.7 mg/dL (0.2-1.0); TOTAL PROTEIN, SERUM 7.2 g/dL (6.4-8.2)
--- NOTE | 2017-06-11 03:42 | NUR ---
Bedside Duplex studies of LE in progress.
--- NOTE | 2017-06-11 03:45 | NUR ---
Duplex studies completed.
--- NOTE | 2017-06-11 04:10 | NUR ---
Dr. Velarde talked to patient and caregiver re: results of tests and procedures.
--- NOTE | 2017-06-11 04:25 | NUR ---
Patient discharged to home in stable conditon. Written and verbal after care instructions given. Patient verbalizes understanding of instructions.
[2017-06-11 04:28] VITALS: BP 115/65
== END 2017-06-11 04:25 | disposition home or self-care (01) ==
LOC: ER 00:15
DX: R60.0 Localized edema (principal); J44.0 Chronic obstructive pulmonary disease with (acute) lower respiratory infection; J18.9 Pneumonia, unspecified organism; M41.9 Scoliosis, unspecified; R73.03 Prediabetes; G80.9 Cerebral palsy, unspecified; Y95 Nosocomial condition; Z88.8 Allergy status to other drugs, medicaments and biological substances
CPT/HCPCS: 36415; 70030-TC; 71045; 85025; 85730; 93005; A4663

== ENCOUNTER 2017-06-11 10:26 | Inpatient (IN) | payer MEDICARE, MEDICAID ==
[~2017-06-11] VITALS: Ht 160 cm; Wt 92.1 kg
[~2017-06-11 10:26] MED LIST changes: +ARIP10TA17 PO; +BENZTROPINE PO; +CHOL500062 PO; +CYAN10009 PO; +DIAZ5TAB4 PO; +FISH1CAP16 PO; +HYDR-3326 PO; +RISP1SOL PO
--- NOTE | 2017-06-11 10:33 | NUR ---
MARIVEL GUADALUPE at the bedside for MSE.
--- NOTE | 2017-06-11 12:20 | NUR ---
patient arrived on med surg floor via gurney from ER. caregiver at bedside. patient awake, alert. able to answer questions. physical assessment complete. MD aware of admission pending orders. call light within reach. will monitor
[2017-06-11 12:31] VITALS: BP 109/73
[2017-06-11] MEDS ORDERED: MAGNESIUM HYDROXIDE 30 ML LIQUID UDC PO PRN (15:45)
[2017-06-11] MEDS ORDERED: ONDANSETRON 4 MG/2 ML VIAL IV PRN (15:45)
[2017-06-11] MEDS ORDERED: Z GUARD REMEDY PASTE 57 GM TUBE TOP PRN (15:45)
[2017-06-11] MEDS ORDERED: ACETAMINOPHEN 325 MG TABLET PO PRN (15:45)
[2017-06-11] MEDS ORDERED: ZOLPIDEM 5 MG TABLET PO PRN (15:45)
[2017-06-11 15:54] VITALS: BP 105/58
[2017-06-11] MEDS: FUROSEMIDE 40 MG TABLET PO SCH (16:59)
[2017-06-11] MEDS: DOCUSATE SODIUM 100 MG CAPSULE PO SCH (17:19)
[2017-06-11] MEDS: ARIPIPRAZOLE 10 MG TABLET PO SCH (17:20)
[2017-06-11] MEDS: CLONIDINE HCL 0.1 MG TABLET PO SCH (17:24)
--- NOTE | 2017-06-11 17:48 | NUR ---
patient stable this shift. caregiver at bedside. no PRN given. call light within reach. will monitor
[2017-06-11 20:00] VITALS: BP 145/58
[2017-06-11] MEDS: SERTRALINE HCL 50 MG TABLET PO SCH ×2 (20:45→21:27)
[2017-06-11] MEDS ORDERED: risperiDONE 1 MG/ML UDC PO SCH (21:00)
[2017-06-11] MEDS: DIVALPROEX 500 MG TABLET.DR PO SCH (21:22)
[2017-06-11] MEDS: risperiDONE 1 MG TABLET PO SCH (21:23)
[2017-06-11] MEDS: DIAZEPAM 5 MG TABLET PO SCH (21:23)
[2017-06-11] MEDS: ENOXAPARIN SODIUM 40 MG/0.4 ML DISP.SYRIN SQ SCH (21:25)
--- NOTE | 2017-06-12 00:07 | NUR ---
Pt placed on CPAP 5, FIO2-21% per MD orders. No resp. distress noted. Pt to be monitored throughout the duration of the shift.
[2017-06-12 04:00] VITALS: BP 132/61
--- NOTE | 2017-06-12 05:55 | NUR ---
Pt removed from CPAP at this time and subsequently placed back on room air. No resp. distress noted.
[2017-06-12 06:32] LABS: BASOPHILS % (AUTO) 0.5 % (0.0-2.0); EOSINOPHILS # (AUTO) 0.1 K/uL (0.0-0.7); EOSINOPHILS % (AUTO) 1.1 % (0.0-7.0); HEMATOCRIT 50.3 % (36.7-47.1); HEMOGLOBIN 16.7 g/dL (12.5-16.3); LYMPHOCYTES # (AUTO) 1.4 K/uL (20.0-40.0); LYMPHOCYTES % (AUTO) 20.2 % (20.5-51.5); MEAN CORPUSCULAR HEMOGLOBIN 30.6 uug (23.8-33.4); MEAN CORPUSCULAR HGB CONC 33 g/dL (32.5-36.3); MONOCYTES # (AUTO) 0.6 K/uL (2.0-10.0); MONOCYTES % (AUTO) 8.6 % (0.0-11.0); NEUTROPHILS % (AUTO) 69.6 % (38.5-71.5); PLATELET COUNT (AUTO) 161 K/uL (152-348); RED BLOOD CELL COUNT(AUTO) 5.46 MIL/uL (4.06-5.63); WHITE BLOOD COUNT (AUTO) 7.2 K/uL (3.6-10.2)
[2017-06-12 06:51] LABS: THYROID STIMULATING HORMONE 1.7 mIU/mL (0.358-3.740)
[2017-06-12 06:56] LABS: CREATININE 1.1 mg/dL (0.6-1.3); MAGNESIUM 1.8 mg/dL (1.8-2.4); PHOSPHOROUS 4.1 mg/dL (2.5-4.9); POTASSIUM 3.8 mmol/L (3.5-5.1)
--- NOTE | 2017-06-12 07:15 | NUR ---
RECEIVED REPORT FROM CHEMIST INTERNSHIP NURSE, PATIENT IN BED ASLEEP, NO EVIDENCE OF DISTRESS NOTED, BED IN LOW POSITION, SIDE RAILS UP X2.
[2017-06-12] MEDS: ARIPIPRAZOLE 10 MG TABLET PO SCH ×2 (08:25→17:52)
[2017-06-12] MEDS: BENZTROPINE MESYLATE 1 MG TABLET PO SCH (08:25)
[2017-06-12] MEDS: CYANOCOBALAMIN 1,000 MCG TABLET PO SCH (08:25)
[2017-06-12] MEDS: DOCUSATE SODIUM 100 MG CAPSULE PO SCH ×2 (08:26→17:51)
[2017-06-12] MEDS: CLONIDINE HCL 0.1 MG TABLET PO SCH ×2 (08:26→17:52)
[2017-06-12] MEDS: FUROSEMIDE 40 MG TABLET PO SCH (08:26)
[2017-06-12 11:09] VITALS: BP 149/59
[2017-06-12 14:57] VITALS: BP 117/64
--- NOTE | 2017-06-12 18:41 | NUR ---
patient has been cooperative with care. Ambulates with standby assist. Patient had two bowel movements today. Currently in bed asleep, no evidence of distress noted at this time. Bed in low position, side rails up x2. Private sitter at bedside.
--- NOTE | 2017-06-12 19:30 | NUR ---
RECEIVED PT AWAKE, ALERT ON BED. PT ON CPAP 5. PT ON DIAPER. SITTER AT BEDSIDE. SIDERAILSX2. BED ALARM ON AND LOW POSITION. WILL CONTINUE TO MONITOR.
[2017-06-12 20:00] VITALS: BP 108/71
[2017-06-12] MEDS: DIAZEPAM 5 MG TABLET PO SCH (21:57)
[2017-06-12] MEDS: DIVALPROEX 500 MG TABLET.DR PO SCH (21:57)
[2017-06-12] MEDS: risperiDONE 1 MG TABLET PO SCH (21:57)
[2017-06-12] MEDS: SERTRALINE HCL 50 MG TABLET PO SCH (21:57)
[2017-06-12] MEDS: ENOXAPARIN SODIUM 40 MG/0.4 ML DISP.SYRIN SQ SCH (21:58)
[2017-06-13 05:26] VITALS: BP 112/71
--- NOTE | 2017-06-13 06:10 | NUR ---
Patient removed from CPAP at this time and placed on room air. No respiratory distress noted.
--- NOTE | 2017-06-13 06:25 | NUR ---
PT SLEPT THROUGHOUT THE SHIFT. PT SHOWS NO SIGNS OF DISTRESS AND PAIN. PT VITAL SIGNS WITHIN NORMAL LIMIT. CAREGIVER AT BEDSIDE. PT REPOSITIONED .ALL PRESCRIBED MEDICATIONS GIVEN. PT TOLERATED WELL. ALL NEEDS ARE MET. SAFETY AND COMFORT PROVIDED.
--- NOTE | 2017-06-13 07:20 | NUR ---
received report from shift supervisor film processing nurse, patient in bed awake, no evidence of distress noted, bed in low position, side rails up x2. bed alarm on, all needs met.
[2017-06-13] MEDS: DOCUSATE SODIUM 100 MG CAPSULE PO SCH ×2 (08:21→17:31)
[2017-06-13] MEDS: CYANOCOBALAMIN 1,000 MCG TABLET PO SCH (08:21)
[2017-06-13] MEDS: BENZTROPINE MESYLATE 1 MG TABLET PO SCH (08:21)
[2017-06-13] MEDS: FUROSEMIDE 40 MG TABLET PO SCH (08:22)
[2017-06-13] MEDS: ARIPIPRAZOLE 10 MG TABLET PO SCH ×2 (08:22→17:31)
[2017-06-13] MEDS: CLONIDINE HCL 0.1 MG TABLET PO SCH ×2 (08:26→17:31)
[2017-06-13] MEDS: HYDROCODONE/APAP 5-325MG TABLET PO PRN (08:35)
[2017-06-13 11:25] VITALS: BP 126/59
[2017-06-13] MEDS ORDERED: DEXTROSE 50% 50 ML DISP.SYRIN IV PRN (12:00)
[2017-06-13] MEDS: BLOOD SUGAR DIAGNOSTIC 1 EACH STRIP VI SCH ×3 (12:55→20:10)
[2017-06-13 15:09] VITALS: BP 141/86
--- NOTE | 2017-06-13 19:11 | NUR ---
Patient has been cooperative with care, no evidence of distress noted, patient was seen by dr. fountain, medication list reviewed and requests a psych consult.
--- NOTE | 2017-06-13 19:12 | NUR ---
RECEIVED PT AWAKE ON BED. PT ON ROOM AIR. PT SHOWS NO SIGNS OF RESP DISTRESS. CALL LIGHT WITHIN REACH.BED ALARM ON AND IN LOW POSITION. WILL CONTINUE TO MONITOR.
[2017-06-13] MEDS: DIVALPROEX 500 MG TABLET.DR PO SCH (20:11)
[2017-06-13] MEDS: risperiDONE 1 MG TABLET PO SCH (20:11)
[2017-06-13] MEDS: SERTRALINE HCL 50 MG TABLET PO SCH (20:11)
[2017-06-13] MEDS: ENOXAPARIN SODIUM 40 MG/0.4 ML DISP.SYRIN SQ SCH (20:18)
[2017-06-13] MEDS: INSULIN REGULAR, HUMAN 300 UNIT/3 ML VIAL SQ PRN (20:19)
[2017-06-13] MEDS: DIAZEPAM 5 MG TABLET PO SCH (20:25)
[2017-06-13 20:50] VITALS: BP 139/85
[2017-06-14 04:00] VITALS: BP 124/79
[2017-06-14] MEDS: HYDROCODONE/APAP 5-325MG TABLET PO PRN (06:06)
--- NOTE | 2017-06-14 06:30 | NUR ---
PT SLEPT THROUGHOUT THE SHIFT. PT SHOWS NO SIGNS OF DISTRESS. PT VITAL SIGNS ARE STABLE. CALL LIGHTWITHIN REACH. BED POSITION LOW. IV INTACT AND PATENT. ALL PRESCRIBED IV MEDICATION GIVEN. BEFORE CHANGING THE DRESSING GAVE MORPHINE FOR PAIN. PICTURE TAKEN AND PUT IT ON CHART. PT TOLERATED IT WELL. ALL NEEDS ARE MET. Addendum: 06/14/17 at 0644 by MART CARCAMO RN WRONG PATIENT
[2017-06-14] MEDS: BLOOD SUGAR DIAGNOSTIC 1 EACH STRIP VI SCH ×3 (06:39→15:58)
--- NOTE | 2017-06-14 06:45 | NUR ---
PT SLEPT THROUGHOUT THE SHIFT. PT SHOWS NO SIGNS OF RESPIRATORY DISTRESS. PT COMPLAINT OF PAIN AND GAVE MORPHINE.PT VITAL SIGNS ARE STABLE.SITTER ON BEDSIDE. CALL LIGHT WITHIN REACH. SITTER ON BEDSIDE. ALL PRESCRIBED MEDICATION GIVEN. PT TOLERATED IT WELL. SAFETY AND COMFORT PROVIDED.ALL NEEDS ARE MET.
--- NOTE | 2017-06-14 06:45 | NUR ---
PT MEDICATION THAT WAS ENDORSED BY DAYSHIFT NURSE ON 06/13/17 IS ON THE CHART. I ASKED THE CHARGE NURSE ABOUT IT AND SAID THAT THERE SHOULD BE AN ORDER BY THE DOCTOR ON FILE TO PLACE HOLD FOR THE MEDICATIONS SI i DIDN'T PUT AN HOLD ON THE MEDS. ENDORSE TO THE INCOMING DAYSWAFT NURSE THAT i PUT THE MEDICATIONS ON THE CHART AND TELL THE PSYCH DOCTOR TO CHECK THE CHART. THE PT WILL HAVE PSYCH CONSULT TODAY.
--- NOTE | 2017-06-14 07:35 | NUR ---
RECEIVED REPORT FROM PURIFYING PLANT OPERATOR NURSE, PATIENT IN BED ASLEEP, NO EVIDENCE OF DISTRESS NOTED, BED IN LOW POSITION, SIDE RAILS UP X2.CALL LIGHT WITH IN REACH
[2017-06-14] MEDS: CYANOCOBALAMIN 1,000 MCG TABLET PO SCH (08:04)
[2017-06-14] MEDS: ARIPIPRAZOLE 10 MG TABLET PO SCH ×2 (08:04→16:24)
[2017-06-14] MEDS: DOCUSATE SODIUM 100 MG CAPSULE PO SCH ×2 (08:04→16:24)
[2017-06-14] MEDS: CLONIDINE HCL 0.1 MG TABLET PO SCH ×2 (08:04→16:26)
[2017-06-14] MEDS: BENZTROPINE MESYLATE 1 MG TABLET PO SCH (08:04)
[2017-06-14] MEDS: FUROSEMIDE 40 MG TABLET PO SCH (08:04)
[2017-06-14] MEDS: INSULIN REGULAR, HUMAN 300 UNIT/3 ML VIAL SQ PRN (11:07)
[2017-06-14 11:43] VITALS: BP 116/79
[2017-06-14 15:52] VITALS: BP 121/70
[2017-06-14 16:26] VITALS: BP 121/70
--- NOTE | 2017-06-14 18:27 | NUR ---
D/C ORDERS RECEIVED NOTED AND CARRIED OUT,D/C INSTRUCTIONS AND EDUCATIONS GIVEN TO THE PT.PT VERBALIZED UNDERSTANDING ALL THE INSTRUCTIONS,PT LEFT THE FACILITY TO ARU VIA WHEEL CHAIR IN STABLE CONDITION.
[2017-06-15] MEDS ORDERED: DIVA500T4 PO (13:52)
== END 2017-06-14 18:30 | DRG 292 ==
LOC: ER 10:32 → MED 12:03
DX: I50.33 Acute on chronic diastolic (congestive) heart failure (principal); J98.11 Atelectasis; M41.9 Scoliosis, unspecified; G80.9 Cerebral palsy, unspecified; J44.9 Chronic obstructive pulmonary disease, unspecified; Z79.899 Other long term (current) drug therapy; Z79.52 Long term (current) use of systemic steroids; M62.81 Muscle weakness (generalized); Z99.3 Dependence on wheelchair; E78.1 Pure hyperglyceridemia; E11.9 Type 2 diabetes mellitus without complications; M79.605 Pain in left leg; M79.604 Pain in right leg; M79.89 Other specified soft tissue disorders; G89.29 Other chronic pain
CPT/HCPCS: 36415; 83735; 84100; 84443; 85025; 93307; 94660; A4663; J1650; J1815

== ENCOUNTER 2017-06-14 19:27 | Inpatient (IN) | payer MEDICARE, MEDICAID ==
[~2017-06-14] VITALS: Ht 160 cm; Wt 113.4 kg
[~2017-06-14 19:27] MED LIST changes: -ARIP15TA3 PO; -DIAZ5SOL2 PO; -HYDR-552 PO; -LEVO100T10 PO; -LEVO500T2 PO; -METH20CP19 PO; -PRED20TA PO
--- NOTE | 2017-06-14 19:30 | NUR ---
Received patient laying in bed, awake, verbally responsive, as new admission. Patient is 51 y/o M from 2nd floor med-surg to rehab with diagnosis of cerebral palsy. No acute distress noted. Pt is AAO x 3, able to make needs known. Patient complained of pain on his back and R ankle, 6/10. PMHx HTN, CAD, Anxiety,Bipolar d/o and CAD. Vitals stable and WNL 110/67, HR 87, RR 18, 98.3 F. Pertinent assessment done, noted to have skin rashes on his back. Dr. Lockwood and Dr. Howell made aware of pt arrival on unit. Paged Dr. Ho for medication reconciliation, awaiting response. Seen by dr. Lockwood. Personal belonging lists done. Call light and all personal belongings within reach. Patient remains in stable condition. Will continue to monitor.
[2017-06-14] MEDS ORDERED: Z GUARD REMEDY PASTE 57 GM TUBE TOP PRN (22:00)
--- NOTE | 2017-06-14 22:40 | NUR ---
[place] 5/325 mg PO given. will monitor patient.
[2017-06-14] MEDS: HYDROCODONE/APAP 5-325MG TABLET PO PRN (22:42)
[2017-06-14 23:18] VITALS: BP 110/67
[2017-06-15] MEDS ORDERED: DEXTROSE 50% 50 ML DISP.SYRIN IV PRN (00:15)
[2017-06-15] MEDS: BLOOD SUGAR DIAGNOSTIC 1 EACH STRIP VI SCH ×4 (06:49→20:12)
--- NOTE | 2017-06-15 07:00 | NUR ---
NURSE NOTES: RECEIVED PATIENT ALERT AWAKE LYING ON BED ON A SEMI- BAUER'S POSITION WITH NO SOB OR DISTRESS. ALL NEEDS WERE ATTENDED AND ANTICIPATED. CALL LIGHT PLACED WITHIN REACH. WILL CONTINUE TO MONITOR.
[2017-06-15] MEDS ORDERED: BLOOD SUGAR DIAGNOSTIC 1 EACH STRIP VI SCH (07:30)
[2017-06-15 08:18] VITALS: BP 129/71
[2017-06-15] MEDS: INSULIN REGULAR, HUMAN 300 UNIT/3 ML VIAL SQ PRN ×4 (09:16→20:22)
[2017-06-15] MEDS: CYANOCOBALAMIN 1,000 MCG TABLET PO SCH (09:18)
[2017-06-15] MEDS: DOCUSATE SODIUM 100 MG CAPSULE PO SCH ×2 (09:18→17:31)
[2017-06-15] MEDS: HYDROCODONE/APAP 5-325MG TABLET PO SCH (09:19)
[2017-06-15] MEDS: CLONIDINE HCL 0.1 MG TABLET PO SCH ×2 (09:19→17:32)
[2017-06-15] MEDS: ARIPIPRAZOLE 10 MG TABLET PO SCH ×2 (09:19→17:31)
--- NOTE | 2017-06-15 11:00 | NUR ---
Received call from pharmacy regarding the Depakote 1000mg to ask the patient what was he taking at home if it is regular Depakote or Depakote Extended Release. Asked patient and caregiver- per patient and caregiver he was taking depakote extended release 500 mg only at bedtime, anything above 500mg of Depakote he will get a reaction. called to pharmacy again and notified what the patient said about the Depakote he was taking. MD [address] aware of the allergy and made aware of the dosage and said ok.
[2017-06-15] MEDS ORDERED: DIVA500T4 PO (13:52)
--- NOTE | 2017-06-15 15:50 | NUR ---
NURSE NOTES: RECEIVED NEW ORDER FROM DR. ANDRES TERRY OF PSYCH CONSULT. CALLED DR. FLORES NOTIFIED OF THE PSYCH CONSULT AND ACKNOWLEDGED THE ORDER. PATIENT INFORMED.
--- NOTE | 2017-06-15 16:00 | NUR ---
PATIENT WAS MOVED FROM ROOM 124B TO ROOM 105 WITH ALL BELONGINGS COMPLETE ACCOMPANIED BY CAREGIVER. REMAINED TO BE IN STABLE CONDITION. NO SOB OR DISTRESS. ALL NEEDS WERE ATTENDED AND ANTICIPATED. CALL LIGHT WITHIN REACH. ENCOURAGED PATIENT TO USE CALL LIGHT WHENEVER ASSISTANCE IS NEEDED. WILL CONTINUE TO MONITOR.
--- NOTE | 2017-06-15 18:36 | NUR ---
PATIENT REMAINED IN STABLE CONDITION. NO SOB OR DISTRESS NOTED. ALL NEEDS WERE ATTENDED AND ANTICIPATED. DENIES ANY PAIN OR DISCOMFORTS. PATIENT'S CAREGIVER STILL AT THE BEDSIDE. CALL LIGHT WITHIN REACH.
--- NOTE | 2017-06-15 19:30 | NUR ---
Received patient laying in bed, awake, and verbally responsive. shift report done at bedside. Vital signs taken and recorded, with no signs of sob, or acute distress. Denies of pain. Pertinent assessment completed. Safety measures provided, bed in low position x2 side rails up. call light placed within reach of pt. will continue to monitor pt through shift.
[2017-06-15] MEDS: DIAZEPAM 5 MG TABLET PO SCH (20:10)
[2017-06-15] MEDS: SERTRALINE HCL 50 MG TABLET PO SCH (20:10)
[2017-06-15] MEDS: DIVALPROEX ER 500 MG TAB.SR.24H PO SCH (20:10)
[2017-06-15] MEDS: risperiDONE 1 MG TABLET PO SCH (20:10)
--- NOTE | 2017-06-15 20:47 | NUR ---
Pt placed on CPAP 5, FIO2-21% at this time per pt request. RN LQ notified and aware. Pt to be monitored throughout the shift. No resp. distress noted at this time.
[2017-06-15] MEDS ORDERED: risperiDONE 1 MG/ML UDC PO SCH (21:00)
[2017-06-15] MEDS ORDERED: DIVALPROEX 500 MG TABLET.DR PO SCH (21:00)
--- NOTE | 2017-06-16 06:26 | NUR ---
Pt removed from CPAP and placed on R/A at this time. No resp. distress noted. RN LQ aware and notified.
[2017-06-16] MEDS: BLOOD SUGAR DIAGNOSTIC 1 EACH STRIP VI SCH ×4 (06:33→21:04)
[2017-06-16] MEDS: INSULIN REGULAR, HUMAN 300 UNIT/3 ML VIAL SQ PRN ×4 (08:08→21:07)
[2017-06-16] MEDS: CLONIDINE HCL 0.1 MG TABLET PO SCH ×2 (09:01→17:24)
[2017-06-16] MEDS: DOCUSATE SODIUM 100 MG CAPSULE PO SCH ×2 (09:01→17:22)
[2017-06-16] MEDS: ARIPIPRAZOLE 10 MG TABLET PO SCH ×2 (09:01→17:24)
[2017-06-16] MEDS: CYANOCOBALAMIN 1,000 MCG TABLET PO SCH (09:01)
[2017-06-16] MEDS: HYDROCODONE/APAP 5-325MG TABLET PO SCH (09:02)
--- NOTE | 2017-06-16 09:48 | NUR ---
patient noted resting in bed with eyes closed, complains of pain in right hip 5/10, no signs of distress noted, call light in reach, bed locked and in lowest position, x [address]
[2017-06-16 10:27] VITALS: BP 134/60
--- NOTE | 2017-06-16 19:51 | NUR ---
shift report done at bedside. Patient laying in bed, awake, and verbally responsive with a friend at bedside. Vital signs taken and recorded, with no signs of sob, or acute distress. Denies of pain. Pertinent assessment completed. Safety measures provided, bed in low position x2 side rails up. call light placed within reach of pt. will continue to monitor pt through shift.
[2017-06-16 20:19] VITALS: BP 109/70
[2017-06-16] MEDS: risperiDONE 1 MG TABLET PO SCH (21:05)
[2017-06-16] MEDS: DIVALPROEX ER 500 MG TAB.SR.24H PO SCH (21:05)
[2017-06-16] MEDS: SERTRALINE HCL 50 MG TABLET PO SCH (21:05)
[2017-06-16] MEDS: DIAZEPAM 5 MG TABLET PO SCH (21:05)
--- NOTE | 2017-06-16 21:30 | NUR ---
Pt placed on CPAP 5, FiO2 21%. Pt is awake and alert. States that the mask fits comfortable at this time. No signs of respiratory distress noted. RN notified and aware pt is on CPAP for the night. Will continue to monitor pt throughout shift.
[2017-06-17] MEDS: BLOOD SUGAR DIAGNOSTIC 1 EACH STRIP VI SCH ×4 (06:19→21:12)
--- NOTE | 2017-06-17 06:19 | NUR ---
Pt removed from CPAP and is now on room air at this time. No respiratory distress noted. RN aware.
[2017-06-17 07:46] VITALS: BP 102/72
[2017-06-17] MEDS: CLONIDINE HCL 0.1 MG TABLET PO SCH ×2 (09:00→17:14)
[2017-06-17] MEDS: CYANOCOBALAMIN 1,000 MCG TABLET PO SCH (09:01)
[2017-06-17] MEDS: DOCUSATE SODIUM 100 MG CAPSULE PO SCH ×2 (09:01→17:14)
[2017-06-17] MEDS: ARIPIPRAZOLE 10 MG TABLET PO SCH ×2 (09:01→17:14)
[2017-06-17] MEDS: HYDROCODONE/APAP 5-325MG TABLET PO SCH (09:02)
[2017-06-17] MEDS: INSULIN REGULAR, HUMAN 300 UNIT/3 ML VIAL SQ PRN ×3 (12:28→21:17)
[2017-06-17 19:45] VITALS: BP 119/72
[2017-06-17] MEDS: risperiDONE 1 MG TABLET PO SCH (21:18)
[2017-06-17] MEDS: DIAZEPAM 5 MG TABLET PO SCH (21:18)
[2017-06-17] MEDS: SERTRALINE HCL 50 MG TABLET PO SCH (21:18)
[2017-06-17] MEDS: DIVALPROEX ER 500 MG TAB.SR.24H PO SCH (21:18)
--- NOTE | 2017-06-17 21:32 | NUR ---
Patient placed on CPAP 5, FIO2-21% at this time per pt request. Pt to be monitored throughout the shift. No resp. distress noted at this time.
--- NOTE | 2017-06-18 05:40 | NUR ---
Pt removed from CPAP at this time and placed back on room air. RN MF aware and notified. No resp. distress noted.
[2017-06-18 07:00] VITALS: BP 109/74
--- NOTE | 2017-06-18 07:20 | NUR ---
Received client in bed sleeping but easily arousable, laying flat in bed, turned on his left side. No apparent signs and symptoms of SOB, pain, distress or discomfort. Bed is at the lowest position for safety and call light within reach for assistance. No IVs, no hydration running at this time, client is on room air
[2017-06-18] MEDS: BLOOD SUGAR DIAGNOSTIC 1 EACH STRIP VI SCH ×4 (07:45→20:40)
[2017-06-18] MEDS: METFORMIN HCL 500 MG TABLET PO SCH ×2 (07:58→17:04)
[2017-06-18] MEDS: DOCUSATE SODIUM 100 MG CAPSULE PO SCH ×2 (08:00→16:35)
[2017-06-18] MEDS: CLONIDINE HCL 0.1 MG TABLET PO SCH ×2 (08:00→16:35)
[2017-06-18] MEDS: ARIPIPRAZOLE 10 MG TABLET PO SCH ×2 (08:00→16:38)
[2017-06-18] MEDS: CYANOCOBALAMIN 1,000 MCG TABLET PO SCH (08:00)
[2017-06-18] MEDS: HYDROCODONE/APAP 5-325MG TABLET PO SCH (08:00)
--- NOTE | 2017-06-18 10:20 | NUR ---
Noted client walking with walker to the physical therapy room guided by a therapist. No signs ans symptoms of SOB, pain, distress or discomfort noted.
--- NOTE | 2017-06-18 11:17 | NUR ---
Client is not in the room. He is with physical therapy Gordon, advocate for the client came to visit him. He went to the physical therapy room Addendum: 06/18/17 at 1119 by ALFREDO SCOTT RN Amended: Links added.
--- NOTE | 2017-06-18 11:45 | NUR ---
Received client back for PT in a wheelchair. Client is noted with no SOB, pain, distress or discomfort.
--- NOTE | 2017-06-18 13:24 | NUR ---
Client is with COKE [employer] MASON at this time
--- NOTE | 2017-06-18 16:24 | NUR ---
Client's Accu ck was 143. Insulin will be given as insulin sliding scale protocol. Accu ck machine cleaned
[2017-06-18] MEDS: INSULIN REGULAR, HUMAN 300 UNIT/3 ML VIAL SQ PRN ×2 (16:37→20:44)
--- NOTE | 2017-06-18 17:49 | NUR ---
Assessed client and noted red bumps and dots around his entire back, abdomen, buttocks and hips. Possible adult body ache, client c/o itchiness on the upper left shoulder. Will let MD know
--- NOTE | 2017-06-18 18:11 | NUR ---
Client has been compliant with all nursing care, OT, FOAM RUBBER FABRICATOR and PT treatments. Compliant with all medications after explaining them. Client has a caregiver by bedside. There has been no apparent signs and symptoms of SOB, distress, or discomfort. No pain stated by client. Client has been able to sit in a chair for L and D. Noted with abdomen distention. Shallow and deep breathing but with no distress or discomfort. Z-guard applied after changing client.
--- NOTE | 2017-06-18 19:35 | NUR ---
Received pt in bed, AAO x 4 with family at bedside. No acute distress noted. Verbally responsive and able to make needs known. Denies pain or discomfort at this time.. All safety measures and fall precautions maintained. Call light and all personal belongings within reach. Will continue to monitor.
[2017-06-18] MEDS: SERTRALINE HCL 50 MG TABLET PO SCH (20:36)
[2017-06-18] MEDS: DIVALPROEX ER 500 MG TAB.SR.24H PO SCH (20:37)
[2017-06-18] MEDS: risperiDONE 1 MG TABLET PO SCH (20:37)
[2017-06-18] MEDS: DIAZEPAM 5 MG TABLET PO SCH (20:37)
[2017-06-18 21:21] VITALS: BP 113/84
--- NOTE | 2017-06-18 21:40 | NUR ---
Pt placed on CPAP at this time by RT per pt request. O2 saturation at 95% with no acute distress noted. Safety maintained. Call light within reach. Will continue to monitor.
--- NOTE | 2017-06-18 21:45 | NUR ---
Due to pt's request placed him on CPAP-5, FIO2-21%. No respiratory distress noted. Mask adjusted for pt's comfort. Alarms on and audible. RN aware.
[2017-06-19] MEDS: BLOOD SUGAR DIAGNOSTIC 1 EACH STRIP VI SCH ×4 (06:34→20:29)
[2017-06-19 07:00] VITALS: BP 134/83
[2017-06-19] MEDS: CYANOCOBALAMIN 1,000 MCG TABLET PO SCH (08:41)
[2017-06-19] MEDS: DOCUSATE SODIUM 100 MG CAPSULE PO SCH ×2 (08:41→17:39)
[2017-06-19] MEDS: METFORMIN HCL 500 MG TABLET PO SCH ×2 (08:41→17:39)
[2017-06-19] MEDS: ARIPIPRAZOLE 10 MG TABLET PO SCH ×2 (08:41→17:39)
[2017-06-19] MEDS: HYDROCODONE/APAP 5-325MG TABLET PO SCH (08:42)
[2017-06-19] MEDS: CLONIDINE HCL 0.1 MG TABLET PO SCH ×2 (08:42→17:45)
[2017-06-19] MEDS: INSULIN REGULAR, HUMAN 300 UNIT/3 ML VIAL SQ PRN ×2 (12:37→20:32)
--- NOTE | 2017-06-19 14:06 | NUR ---
INTERDISCIPLINARY TEAM CONFERENCE
--- NOTE | 2017-06-19 15:20 | NUR ---
SBAR report received, board updated. Pt assessed, no c/o pain or acute distress reported. Pt compliant with all routinely scheduled medications. V/S WNL. 2 units of insulin administered to cover blood sugar 144 prior to lunch. Bed in locked and lowest position, with side rails up x2. All safety and comfort measures met. Call light and personal items placed within reach. Will continue to monitor.
--- NOTE | 2017-06-19 18:46 | NUR ---
Pt sitting up in chair watching TV at this time. Pt compliant with all scheduled evening medication administration. Pt denies any c/o pain or discomfort. All safety and comfort needs met. Call light and personal belongings within reach. Pt clean and dry with diaper, reminded to utilize call light for all needs. Will continue to monitor and endorse to oncoming night shift supervisor.
--- NOTE | 2017-06-19 19:35 | NUR ---
Received pt in bed, appearing to be asleep but easily arousable to verbal stimuli. Verbally responsive and able to make needs known. Denies pain or discomfort. All safety measures and fall precautions maintained. No acute distress noted. Caregiver at bedside. Call light and all personal belongings within reach. Will continue to monitor.
[2017-06-19] MEDS: DIVALPROEX ER 500 MG TAB.SR.24H PO SCH (20:26)
[2017-06-19] MEDS: risperiDONE 1 MG TABLET PO SCH (20:26)
[2017-06-19] MEDS: DIAZEPAM 5 MG TABLET PO SCH (20:26)
[2017-06-19] MEDS: SERTRALINE HCL 50 MG TABLET PO SCH (20:26)
[2017-06-19 20:30] VITALS: BP 113/65
--- NOTE | 2017-06-20 02:21 | NUR ---
PT PLACED ON CPAP MODE WITH FULL MASK 5CM, RR12 APPROX, DOING WELL, THROUGH THE NIGH SHIFT, CHECKED PERIODICALLY, AND ADJUST MASK, PT ON ROOM AIR. Terence LORAP Addendum: 06/20/17 at 0223 by ADILIA CAN RT Amended: Links added.
[2017-06-20] MEDS: BLOOD SUGAR DIAGNOSTIC 1 EACH STRIP VI SCH ×4 (06:40→20:56)
[2017-06-20 07:42] LABS: BASOPHILS % (AUTO) 0.4 % (0.0-2.0); EOSINOPHILS # (AUTO) 0.1 K/uL (0.0-0.7); EOSINOPHILS % (AUTO) 1.2 % (0.0-7.0); HEMATOCRIT 50.5 % (36.7-47.1); LYMPHOCYTES # (AUTO) 1.4 K/uL (20.0-40.0); LYMPHOCYTES % (AUTO) 21.5 % (20.5-51.5); MEAN CORPUSCULAR HEMOGLOBIN 30.9 uug (23.8-33.4); MEAN CORPUSCULAR HGB CONC 34 g/dL (32.5-36.3); MONOCYTES # (AUTO) 0.6 K/uL (2.0-10.0); MONOCYTES % (AUTO) 9.9 % (0.0-11.0); NEUTROPHILS # (AUTO) 4.4 K/uL (1.8-8.9); PLATELET COUNT (AUTO) 159 K/uL (152-348); RED BLOOD CELL COUNT(AUTO) 5.49 MIL/uL (4.06-5.63); WHITE BLOOD COUNT (AUTO) 6.6 K/uL (3.6-10.2)
[2017-06-20 07:58] LABS: BILIRUBIN,TOTAL 0.7 mg/dL (0.2-1.0); MAGNESIUM 1.9 mg/dL (1.8-2.4); PHOSPHOROUS 3.4 mg/dL (2.5-4.9); POTASSIUM 4.3 mmol/L (3.5-5.1); TOTAL PROTEIN, SERUM 7.2 g/dL (6.4-8.2)
[2017-06-20] MEDS: METFORMIN HCL 500 MG TABLET PO SCH ×2 (08:52→17:02)
[2017-06-20] MEDS: DOCUSATE SODIUM 100 MG CAPSULE PO SCH ×2 (08:52→17:01)
[2017-06-20] MEDS: ARIPIPRAZOLE 10 MG TABLET PO SCH ×2 (08:52→17:02)
[2017-06-20] MEDS: CYANOCOBALAMIN 1,000 MCG TABLET PO SCH (08:52)
[2017-06-20] MEDS: CLONIDINE HCL 0.1 MG TABLET PO SCH ×2 (08:53→17:06)
[2017-06-20] MEDS: HYDROCODONE/APAP 5-325MG TABLET PO SCH (08:53)
[2017-06-20 09:27] VITALS: BP 127/65
--- NOTE | 2017-06-20 12:41 | NUR ---
SBAR report received, board updated. Pt assessed, no acute distress or SOB at this time. Blood sugar reading 388 at 11:30, MD leo made aware. Blood sugars rechecked at 1220 reading 129. No insulin coverage needed for lunch. Pt compliant with all routinely scheduled medications. Bed in locked and lowest position, side rails p x2. All comfort and safety needs met. Will continue to monitor and follow up.
[2017-06-20] MEDS: INSULIN REGULAR, HUMAN 300 UNIT/3 ML VIAL SQ PRN (17:11)
--- NOTE | 2017-06-20 18:15 | NUR ---
2 units of insulin administered to cover blood sugar 138 prior to dinner. Pt assisted back to bed following dinner. Pt able to make needs known and reminded to utilize call light, placed within reach. Pt denies any discomfort or pain at this time. Pt clean and dry. All comfort and safety measures met. Bed in locked and lowest position. Will continue to monitor and endorse to oncoming night worker.
[2017-06-20 19:54] VITALS: BP 118/62
[2017-06-20 20:05] VITALS: BP 108/70
[2017-06-20] MEDS: DIAZEPAM 5 MG TABLET PO SCH (20:48)
[2017-06-20] MEDS: SERTRALINE HCL 50 MG TABLET PO SCH (20:48)
[2017-06-20] MEDS: risperiDONE 1 MG TABLET PO SCH (20:48)
[2017-06-20] MEDS: DIVALPROEX ER 500 MG TAB.SR.24H PO SCH (20:48)
[2017-06-21] MEDS: BLOOD SUGAR DIAGNOSTIC 1 EACH STRIP VI SCH ×4 (06:18→20:01)
[2017-06-21 07:30] VITALS: BP 149/75
[2017-06-21] MEDS: METFORMIN HCL 500 MG TABLET PO SCH ×2 (08:39→17:19)
[2017-06-21] MEDS: DOCUSATE SODIUM 100 MG CAPSULE PO SCH ×2 (08:39→16:18)
[2017-06-21] MEDS: CLONIDINE HCL 0.1 MG TABLET PO SCH ×2 (08:40→16:18)
[2017-06-21] MEDS: CYANOCOBALAMIN 1,000 MCG TABLET PO SCH (08:40)
[2017-06-21] MEDS: HYDROCODONE/APAP 5-325MG TABLET PO SCH (08:41)
[2017-06-21] MEDS: ARIPIPRAZOLE 10 MG TABLET PO SCH ×2 (08:43→16:18)
[2017-06-21] MEDS: INSULIN REGULAR, HUMAN 300 UNIT/3 ML VIAL SQ PRN ×2 (12:09→20:05)
[2017-06-21] MEDS: HYDROCODONE/APAP 5-325MG TABLET PO PRN (12:47)
--- NOTE | 2017-06-21 16:47 | NUR ---
Daily Nursing Note: Patient is awake and alert, complains of pain on his neck 5/10, was provided with PRN pain medication per MDs order. Patient participated well in his PT/OT exercises. Pertinent assessments done to all body systems, and patient is not in acute distress, afebrile, skin is warm and dry to touch, with no hypoglycemia or hyperglycemia at this time. He has a marine rigger at bedside. Compliant with his care plan and addressed all questions and concerns regarding his care. Call light placed in reach. Will continue to monitor.
--- NOTE | 2017-06-21 19:45 | NUR ---
Pt resting comfortably in bed. AAO x3. Caregiver at bedside. No acute distress noted. No c/o pain or discomfort. Safety measures maintained. Bed alarm on. Call light and personal belongings within reach. Will continue to monitor.
[2017-06-21 19:58] VITALS: BP 111/60
[2017-06-21] MEDS: SERTRALINE HCL 50 MG TABLET PO SCH (20:01)
[2017-06-21] MEDS: risperiDONE 1 MG TABLET PO SCH (20:01)
[2017-06-21] MEDS: DIAZEPAM 5 MG TABLET PO SCH (20:01)
[2017-06-21] MEDS: DIVALPROEX ER 500 MG TAB.SR.24H PO SCH (20:01)
--- NOTE | 2017-06-22 03:21 | NUR ---
PT ON CPAP MACHINE 5CM PEEP WITH FULL MASK, CPAP ON LESS THAN 12 HOURS, DOING WELL RR 9-13, NO O2, PT HAS SITTER IN ROOM . Terence CAN RCP Addendum: 06/22/17 at 0323 by ADILIA CAN RT Amended: Links added.
--- NOTE | 2017-06-22 05:24 | NUR ---
Pt slept comfortably at night. On CPAP machine during the night, tolerating well. Meds and insulin coverage given per MD's order. All needs attended to promptly. Will endorse to day shift RN. Continue to monitor.
[2017-06-22] MEDS: BLOOD SUGAR DIAGNOSTIC 1 EACH STRIP VI SCH ×4 (06:30→20:05)
[2017-06-22 07:30] VITALS: BP 116/76
[2017-06-22] MEDS: CLONIDINE HCL 0.1 MG TABLET PO SCH ×2 (09:37→17:25)
[2017-06-22] MEDS: CYANOCOBALAMIN 1,000 MCG TABLET PO SCH (09:38)
[2017-06-22] MEDS: METFORMIN HCL 500 MG TABLET PO SCH ×2 (09:38→17:16)
[2017-06-22] MEDS: DOCUSATE SODIUM 100 MG CAPSULE PO SCH ×2 (09:38→17:16)
[2017-06-22] MEDS: HYDROCODONE/APAP 5-325MG TABLET PO SCH (09:39)
[2017-06-22] MEDS: ARIPIPRAZOLE 10 MG TABLET PO SCH ×2 (09:39→17:19)
[2017-06-22] MEDS: INSULIN REGULAR, HUMAN 300 UNIT/3 ML VIAL SQ PRN ×2 (12:10→17:15)
--- NOTE | 2017-06-22 17:39 | NUR ---
Daily Nursing Note: 0730. Patient is awake and alert, complains of throat pain this morning, per patient he feels like it is irritated and it hurts when swallowing and sometimes talking too, was provided with oral care and then reassessed for effectiveness, patient verbalized that it helped and it feels better, minimal discomfort is what he feels on his throat at the moment, encouraged patient to increase oral fluid intake as tolerated as well as reinforced to have oral care after meals. 1000. Patient participated well in his PT/OT exercises. Pertinent assessments done to all body systems, and patient is not in acute distress, afebrile, skin is warm and dry to touch, with no hypoglycemia or hyperglycemia at this time. 1430. Today his friend Gordon came, and discussed with him the concerns regarding having to take insulin at home, MD Stokes was notified and aware of the concern of patients friend. Per MD, i explained to the patient along with Gordon, that he will not continue having insulin shots at home at this time. 1739. Overall patient is compliant with his care plan, insulin coverage given per protocol, and addressed all questions and concerns regarding his care. Call light placed in reach. Will continue to monitor.
[2017-06-22] MEDS ORDERED: BISACODYL 5 MG TABLET.DR PO PRN (18:15)
[2017-06-22 19:30] VITALS: BP 124/70
--- NOTE | 2017-06-22 19:55 | NUR ---
Pt sleeping comfortably in bed. Arouses easily when called by name. AAO x3. No acute distress noted. No c/o pain or discomfort. Safety measures maintained. Bed alarm on. Call light and personal belongings within reach. Will continue to monitor.
[2017-06-22] MEDS: risperiDONE 1 MG TABLET PO SCH (20:07)
[2017-06-22] MEDS: DIVALPROEX ER 500 MG TAB.SR.24H PO SCH (20:07)
[2017-06-22] MEDS: SERTRALINE HCL 50 MG TABLET PO SCH (20:07)
[2017-06-22] MEDS: DIAZEPAM 5 MG TABLET PO SCH (20:08)
--- NOTE | 2017-06-22 21:50 | NUR ---
Placed pt on CPAP 5, FIO2-21%. No s/s of respiratory distress noted. Mask adjusted for pt's comfort. Alarms on and audible.
--- NOTE | 2017-06-23 05:51 | NUR ---
Pt slept comfortably at night with CPAP on. Regularly checked by RT t/o the night. Caregiver at bedside. Vital signs WNL. Meds given per MD's order. Pt compliant. Blood sugar WNL last night and no insulin coverage was given. Will endorse to day shift RN. Continue to monitor.
[2017-06-23] MEDS: BLOOD SUGAR DIAGNOSTIC 1 EACH STRIP VI SCH ×4 (06:34→20:37)
[2017-06-23 07:04] VITALS: BP 132/67
[2017-06-23] MEDS: METFORMIN HCL 500 MG TABLET PO SCH ×2 (08:45→17:01)
[2017-06-23] MEDS: DOCUSATE SODIUM 100 MG CAPSULE PO SCH ×2 (08:46→16:56)
[2017-06-23] MEDS: CYANOCOBALAMIN 1,000 MCG TABLET PO SCH (08:46)
[2017-06-23] MEDS: CLONIDINE HCL 0.1 MG TABLET PO SCH ×2 (08:46→16:52)
[2017-06-23] MEDS: HYDROCODONE/APAP 5-325MG TABLET PO SCH (08:51)
[2017-06-23] MEDS: ARIPIPRAZOLE 10 MG TABLET PO SCH ×2 (08:51→16:56)
--- NOTE | 2017-06-23 11:07 | NUR ---
Daily Nursing Note: Patient is awake and alert, was provided with oral care and then reassessed for effectiveness, patient verbalized that it helped and it feels better, minimal discomfort is what he feels on his throat at the moment, encouraged patient to increase oral fluid intake as tolerated as well as reinforced to have oral care after meals. Patient has no signs no symptoms of hypo- or hyperglycemia, not in acute distress. Patient care and all necessary follow-up care endorsed to Simi POOL
[2017-06-23] MEDS: INSULIN REGULAR, HUMAN 300 UNIT/3 ML VIAL SQ PRN (11:41)
--- NOTE | 2017-06-23 11:45 | NUR ---
Received SBAR report from NICKO Catalan. Received PT GURPREET X3 in wheelchair. No signs of distress or no SOB. No complain of pain when asked about his previous pain in the throat. Safety measures provided, wheelchair lock and call light within reach. Will continue to monitor.
[2017-06-23] MEDS: HYDROCODONE/APAP 5-325MG TABLET PO PRN (17:05)
--- NOTE | 2017-06-23 18:07 | NUR ---
1510: Caregiver, Slade, asked on behalf of the PT if Hamzah can walk around the unit with the assistance of the caregiver. Physical Therapists recommended that PT needs to be reevaluated tomorrow because he was dragging his feet during activity yesterday. Caregiver and PT is made aware. 1710: PT stated pain of 6/10 in the left shoulder. Mentioned that the pain just stated and is aching. Medicated with [employer] 5-325MG 1 Tab PRN. Also blood sugar was checked, BS: 72. Provided 8oz of OJ. No signs of hypoglycemia. No distress noted. No SOB. Safety measures provided. Will continue to monitor. 1805: Reassessed PT's pain and stated it was 1/10. PT awake and alert. No signs of distress. All questions and concerns answered. PT returned in bed and sitting upright. Safety measures provided, side rails up, call light within reach. Continue to monitor.
--- NOTE | 2017-06-23 19:30 | NUR ---
PT IN ROOM ALERT AWAKE IN NO ACUTE DISTRESS. CG AT BEDSIDE ASSISTING WITH ADLS. PT DENIES ANY PAIN OR DISCOMFORT. STATES HE HAS MINOR DISCOMFORT TO NOSE AREA. SITE NOTED WITH ACNE WITH NO DRAINAGE OR BLEEDING. PT ABLE TO FOLLOW SIMPLE COMMANDS WITHOUT DIFFICULTY. REMINDED PT TO USE CALL LIGHT FOR ASSISTANCE NEEDED. ROUTINE HS MEDICATIONS REVIEW WITH PT AND IS AWARE. V/S ARE WNL. CONTINUE TO MONITOR.
[2017-06-23 20:01] VITALS: BP 117/72
[2017-06-23] MEDS: risperiDONE 1 MG TABLET PO SCH (20:37)
[2017-06-23] MEDS: DIAZEPAM 5 MG TABLET PO SCH (20:37)
[2017-06-23] MEDS: SERTRALINE HCL 50 MG TABLET PO SCH (20:37)
[2017-06-23] MEDS: DIVALPROEX ER 500 MG TAB.SR.24H PO SCH (20:37)
--- NOTE | 2017-06-23 22:00 | NUR ---
Pt placed on CPAP at this time per pt's request. Settings are CPAP 5, FiO2 21%. No signs of respiratory distress noted at this time. Pt states that mask fit is comfortable. Pt tolerating CPAP well at this time, will continue to monitor pt throughout shift.
--- NOTE | 2017-06-24 06:00 | NUR ---
PT ABLE TO SLEEP WITHOUT DIFFICULTY USING CPAP MACHINE. CG AT BEDSIDE ASSISTING WITH MINIMAL ADLS. NO RESP DISTRESS NOTED OVERNIGHT. DENIES ANY SOB, PAIN, OR DISCOMFORT. RT AWARE OF OCCASIONAL ALARMS ON PT'S MACHINE. NO S/S OF HYPER/HYPOGLYCEMIA. CONTINUE TO MONITOR. CALL LIGHT WITHIN REACH.
[2017-06-24] MEDS: BLOOD SUGAR DIAGNOSTIC 1 EACH STRIP VI SCH ×4 (06:31→20:48)
[2017-06-24 07:06] VITALS: BP 128/62
[2017-06-24] MEDS: METFORMIN HCL 500 MG TABLET PO SCH ×2 (08:00→17:05)
[2017-06-24] MEDS: DOCUSATE SODIUM 100 MG CAPSULE PO SCH ×2 (08:01→17:05)
[2017-06-24] MEDS: CYANOCOBALAMIN 1,000 MCG TABLET PO SCH (08:01)
[2017-06-24] MEDS: CLONIDINE HCL 0.1 MG TABLET PO SCH ×2 (08:01→17:12)
[2017-06-24] MEDS: ARIPIPRAZOLE 10 MG TABLET PO SCH ×2 (08:02→17:06)
[2017-06-24] MEDS: HYDROCODONE/APAP 5-325MG TABLET PO SCH (08:06)
--- NOTE | 2017-06-24 11:39 | NUR ---
i agree Addendum: 06/24/17 at 1140 by CAMPBELL WELDON OT Amended: Links added.
--- NOTE | 2017-06-24 11:41 | NUR ---
i agree Addendum: 06/24/17 at 1141 by CAMPBELL WELDON OT Amended: Links added.
[2017-06-24] MEDS: INSULIN REGULAR, HUMAN 300 UNIT/3 ML VIAL SQ PRN ×2 (11:55→21:20)
[2017-06-24 20:00] VITALS: BP 117/61
--- NOTE | 2017-06-24 20:30 | NUR ---
Received pt on bed asleep with no signs/symptoms of distress noted. Denies pain. Breathing even and unlabored with normal respirations. No signs/symptoms of hypo/hyperglycemia noted. All due meds given as ordered. Call light within reach. Safety and fall precautions observed. Kept clean, dry and comfortable. All needs met.
[2017-06-24] MEDS: SERTRALINE HCL 50 MG TABLET PO SCH (20:38)
[2017-06-24] MEDS: risperiDONE 1 MG TABLET PO SCH (20:38)
[2017-06-24] MEDS: DIAZEPAM 5 MG TABLET PO SCH (20:41)
[2017-06-24] MEDS: DIVALPROEX ER 500 MG TAB.SR.24H PO SCH (20:43)
--- NOTE | 2017-06-24 21:00 | NUR ---
Pt placed on CPAP at this time. Settings are CPAP 5, FiO2 21%. No signs of respiratory distress noted at this time. Noted some redness on bridge of nose, RN made aware. Pt is awake and alert, placed protecta-gel on to protect skin from mask, pt states that mask fit is comfortable. Pt tolerating CPAP well at this time, will continue to monitor pt throughout shift.
--- NOTE | 2017-06-25 05:30 | NUR ---
Pt slept well throughout the shift. No acute distress noted. No complaints of pain or discomfort. Breathing even and unlabored with normal respirations. Kept clean, dry and comfortable. Call light placed within reach. All needs attended
[2017-06-25] MEDS: BLOOD SUGAR DIAGNOSTIC 1 EACH STRIP VI SCH ×4 (06:34→20:54)
[2017-06-25] MEDS: INSULIN REGULAR, HUMAN 300 UNIT/3 ML VIAL SQ PRN (07:57)
[2017-06-25] MEDS: METFORMIN HCL 500 MG TABLET PO SCH ×2 (08:08→17:45)
[2017-06-25] MEDS: DOCUSATE SODIUM 100 MG CAPSULE PO SCH ×2 (08:09→17:45)
[2017-06-25] MEDS: CLONIDINE HCL 0.1 MG TABLET PO SCH ×2 (08:09→17:45)
[2017-06-25] MEDS: CYANOCOBALAMIN 1,000 MCG TABLET PO SCH (08:09)
[2017-06-25] MEDS: HYDROCODONE/APAP 5-325MG TABLET PO SCH (08:09)
[2017-06-25] MEDS: ARIPIPRAZOLE 10 MG TABLET PO SCH ×2 (08:09→17:45)
[2017-06-25 08:20] VITALS: BP 122/64
--- NOTE | 2017-06-25 10:28 | NUR ---
Patient noted resting in bed with eyes closed, no complaints of pain at this time, no signs of distress, call light in reach, bed locked and in lowest position, x 2 bed rails
--- NOTE | 2017-06-25 19:30 | NUR ---
Patient currently lying in bed at start of shift with no signs of pain, sob, or acute distress. Personal sitter at bedside. patient is A/O x3 & able to make needs known. Vital signs WNL. Bed placed in low position x2 side rails up. Call light placed within reach. Will continue to monitor through shift.
[2017-06-25 20:18] VITALS: BP 112/61
[2017-06-25] MEDS: DIAZEPAM 5 MG TABLET PO SCH (20:50)
[2017-06-25] MEDS: SERTRALINE HCL 50 MG TABLET PO SCH (20:50)
[2017-06-25] MEDS: DIVALPROEX ER 500 MG TAB.SR.24H PO SCH (20:50)
[2017-06-25] MEDS: risperiDONE 1 MG TABLET PO SCH (20:50)
--- NOTE | 2017-06-25 22:10 | NUR ---
Pt placed on CPAP at this time. Settings are CPAP 5, FiO2 21%. No signs of respiratory distress noted at this time. Placed protecta-gel on to protect skin from mask, pt states that mask fit is comfortable, RN aware. Saturation is 92%. Pt tolerating CPAP well at this time, will continue to monitor pt throughout shift.
--- NOTE | 2017-06-26 06:10 | NUR ---
Patient slept well through shift. No acute distress noted. On CPAP at night. No signs of sob noted. O2 sat at 92%. all needs attended to. All meds administered as ordered per MD. Safety measures implemented. Call light within reach. Will endorse to day shift nurse.
[2017-06-26 07:27] LABS: BASOPHILS % (AUTO) 0.6 % (0.0-2.0); EOSINOPHILS # (AUTO) 0.1 K/uL (0.0-0.7); EOSINOPHILS % (AUTO) 1.6 % (0.0-7.0); HEMATOCRIT 50.8 % (36.7-47.1); HEMOGLOBIN 17.2 g/dL (12.5-16.3); LYMPHOCYTES # (AUTO) 1.4 K/uL (20.0-40.0); LYMPHOCYTES % (AUTO) 22.3 % (20.5-51.5); MEAN CORPUSCULAR HGB CONC 34 g/dL (32.5-36.3); MEAN CORPUSCULAR VOLUME 91.5 fL (73.0-96.2); MONOCYTES # (AUTO) 0.5 K/uL (2.0-10.0); MONOCYTES % (AUTO) 8.5 % (0.0-11.0); NEUTROPHILS # (AUTO) 4.3 K/uL (1.8-8.9); PLATELET COUNT (AUTO) 168 K/uL (152-348); RED BLOOD CELL COUNT(AUTO) 5.54 MIL/uL (4.06-5.63); WHITE BLOOD COUNT (AUTO) 6.4 K/uL (3.6-10.2)
--- NOTE | 2017-06-26 07:43 | NUR ---
Patient noted resting in bed with eyes closed, no complaints of pain, no signs of distress noted, currently on room air, call light in reach, bed locked and in lowest position, bed alarm in place, x2 bed rails in place
[2017-06-26 07:55] LABS: BILIRUBIN,TOTAL 0.7 mg/dL (0.2-1.0); PHOSPHOROUS 3.6 mg/dL (2.5-4.9); POTASSIUM 4.1 mmol/L (3.5-5.1); TOTAL PROTEIN, SERUM 7.3 g/dL (6.4-8.2)
[2017-06-26 08:00] VITALS: BP 104/61
[2017-06-26] MEDS: CLONIDINE HCL 0.1 MG TABLET PO SCH ×2 (08:56→17:23)
[2017-06-26] MEDS: ARIPIPRAZOLE 10 MG TABLET PO SCH ×2 (08:57→17:22)
[2017-06-26] MEDS: CYANOCOBALAMIN 1,000 MCG TABLET PO SCH (08:57)
[2017-06-26] MEDS: HYDROCODONE/APAP 5-325MG TABLET PO SCH ×2 (08:57→16:33)
[2017-06-26] MEDS: METFORMIN HCL 500 MG TABLET PO SCH ×2 (08:57→17:22)
[2017-06-26] MEDS: DOCUSATE SODIUM 100 MG CAPSULE PO SCH ×2 (08:57→17:22)
--- NOTE | 2017-06-26 13:34 | NUR ---
INTERDISCIPLINARY TEAM CONFERENCE
[2017-06-26 19:30] VITALS: BP 125/69
--- NOTE | 2017-06-26 19:30 | NUR ---
Patient lying comfortably at start of shift with no signs of acute distress. Vital signs within normal range. Pertinent assessment completed. Personal sitter at bedside. Patient stated 6/10 pain at start of shift. Will administer pain meds per MD order & continue to monitor. Bed placed in low position. Bed alarm checked at start of shift. Call light within reach. Encouraged pt to use call light when in need of assistance. Will continue to monitor through shift.
[2017-06-26] MEDS: DIVALPROEX ER 500 MG TAB.SR.24H PO SCH (20:26)
[2017-06-26] MEDS: SERTRALINE HCL 50 MG TABLET PO SCH (20:26)
[2017-06-26] MEDS: risperiDONE 1 MG TABLET PO SCH (20:26)
[2017-06-26] MEDS: DIAZEPAM 5 MG TABLET PO SCH (20:26)
--- NOTE | 2017-06-27 06:19 | NUR ---
Patient slept well through the shift. No acute distress noted. No complaints of any discomfort or pain. All needs attended to. Meds administered as ordered per MD. Patient used Bipap through out the night. Breathing even & unlabored with normal respirations. Kept clean, dry, & comfortable. Call light within reach. Will endorse to day shift RN.
[2017-06-27 07:00] VITALS: BP 126/74
--- NOTE | 2017-06-27 07:59 | NUR ---
Patient noted resting in bed with eyes closed, no complaints of pain at this time, no signs of distress noted, call light in reach, bed locked and in lowest position, all needs met at this time.
[2017-06-27] MEDS: DOCUSATE SODIUM 100 MG CAPSULE PO SCH (08:48)
[2017-06-27] MEDS: CYANOCOBALAMIN 1,000 MCG TABLET PO SCH (08:48)
[2017-06-27] MEDS: METFORMIN HCL 500 MG TABLET PO SCH (08:48)
[2017-06-27] MEDS: HYDROCODONE/APAP 5-325MG TABLET PO SCH (08:48)
[2017-06-27 08:49] VITALS: BP 126/64
[2017-06-27] MEDS: ARIPIPRAZOLE 10 MG TABLET PO SCH (08:49)
[2017-06-27] MEDS: CLONIDINE HCL 0.1 MG TABLET PO SCH (08:49)
--- NOTE | 2017-06-27 15:26 | NUR ---
Patient discharged to home with home health at 1522, assisted to private vehicle with via wheelchair with career information specialist, discharge instructions given, exit care provided, left facility in stable condition, 122/65, 73 pulse, 97% on room, 98.1, medication list and hard copy for narcotics provided to patient
== END 2017-06-27 15:22 | disposition home health service (06) | DRG 52 ==
PROVIDERS: ADMIT Physical Medicine & Rehabilitation Pain Medicine; ATTEND Physical Medicine & Rehabilitation Pain Medicine
DX: G80.1 Spastic diplegic cerebral palsy (principal); I50.32 Chronic diastolic (congestive) heart failure; I11.0 Hypertensive heart disease with heart failure; E46 Unspecified protein-calorie malnutrition; E11.65 Type 2 diabetes mellitus with hyperglycemia; Z68.41 Body mass index [BMI] 40.0-44.9, adult; M41.9 Scoliosis, unspecified; R53.1 Weakness; J44.9 Chronic obstructive pulmonary disease, unspecified; E03.9 Hypothyroidism, unspecified; F31.9 Bipolar disorder, unspecified; F41.9 Anxiety disorder, unspecified; G47.33 Obstructive sleep apnea (adult) (pediatric); I25.10 Atherosclerotic heart disease of native coronary artery without angina pectoris; Z96.643 Presence of artificial hip joint, bilateral; R26.9 Unspecified abnormalities of gait and mobility; Z88.8 Allergy status to other drugs, medicaments and biological substances
CPT/HCPCS: 36415; 70030-TC; 83735; 84100; 85025; 92507; 92610; 94660; 97110; 97112; 97116; 97165; 97530; 97535; A4663; J1815